=== PATIENT | male | born 1970 | race Caucasian/White ===

== ENCOUNTER 2022-04-29 09:12 | Inpatient (IN) ==
[2022-04-29] MEDS ORDERED: SODIUM CHLORIDE 0.9% 1000ML 1,000 ML IV ONE (09:44)
[2022-04-29] MEDS ORDERED: ONDANSETRON INJ 2 MG/ML 2 ML VIAL IV STA (10:02)
[2022-04-29 10:03] LABS: Basophils # (auto) 0.04 K/uL (0-0.2); Basophils % (auto) 0.4 %; Eosinophils # (auto) 0.24 K/uL (0-0.50); Eosinophils % (auto) 2.6 %; Hematocrit (blood only) 41.5 % (40.1-51.0); Hemoglobin 14.2 g/dl (14.0-18.0); Immature Granulocytes # (auto) 0.02 K/uL (0.00-0.02); Immature Granulocytes % (auto) 0.2 %; Lymphocytes % (auto) 25.7 %; Mean Corpuscular Hemoglobin 30.6 pg (25.0-34.0); Mean Corpuscular Hgb Conc 34.2 g/dL (32.0-36.0); Mean Corpuscular Volume 89.4 fL (80.0-100.0); Mean Platelet Volume 10.6 fL (9.4-12.4); Monocytes # (auto) 1.05 K/uL (0.24-0.82); Monocytes % (auto) 11.3 %; Neutrophils # (auto) 5.58 K/uL (1.4-6.5); Neutrophils % (auto) 59.8 %; Platelet Count 252 K/uL (130-400); RDW Coefficient of Variation 12.2 % (11.5-14.5); RDW Standard Deviation 40.2 fL (36.4-46.3); Red Blood Count 4.64 M/uL (4.63-6.08); White Blood Count 9.33 K/ul (4.8-10.8)
[2022-04-29 10:21] LABS: Albumin Level 3.9 gm/dl (3.4-5.0); BUN Creatinine Ratio 16.4 (10-20); Bilirubin Direct 0.2 mg/dl (0-0.2); Bilirubin,Total 0.9 mg/dl (0.2-1.0); Calcium 8.9 mg/dl (8.5-10.1); Creatinine Clr Calc Pharmacy 99.3 ml/min; Est GFR (African American) 83.5 ml/min; Potassium 3.4 mmol/L (3.5-5.1); Total Protein 7.6 gm/dl (6.0-8.3)
[2022-04-29] MEDS ORDERED: OPTIRAY 350 100ml IV ONE (11:11)
--- NOTE | 2022-04-29 11:33 | CT Scan Report ---
CT abd pelvis IV con only CLINICAL HISTORY: llq pain TECHNIQUE: Helical axial images of the abdomen and pelvis were obtained and displayed. Automated dose lowering techniques and/or adjustment according to patient size were utilized for this exam. This e xam was performed with intravenous contrast. CT DOSE: 1508.17 mGy.cm COMPARISON: None available at the time of this dictation. FINDINGS: Lower chest: Mild atherosclerotic disease is seen in the coronary arteries. Liver: Unremarkable. No focal lesions are seen. Gallbladder and biliary tree: Patient is status post cholecystectomy. No intra- or extrahepatic bilia ry ductal dilation. Pancreas: Unremarkable, no focal lesions. Spleen: Unremarkable. Adrenals: Unremarkable. Kidneys and ureters: Unremarkable. Bladder: Unremarkable. Reproductive organs: Unremarkable. Bowel: Numerous diverticula are seen. There is mild thickening of the sigmoid: With a gas and fluid c ollection adjacent to it. There is also extensive stranding about adjacent loops of small bowel, farheen ral which are dilated measuring up to 35 mm in diameter. Lymph nodes Retroperitoneal: Subcentimeter retroperitoneal and kerri hepatis nodes are noted. Pelvic: Unremarkable. Mesenteric: Subcentimeter lymph nodes are noted. Peritoneum: Prominent fat stranding is seen in the left lower quadrant about the sigmoid colon and mu ltiple loops of bowel. Trace free pelvic fluid is seen. A small gas and fluid collection is noted. No free air is seen. Vessels: Atherosclerotic calcifications are seen. Abdominal wall: A fat-containing umbilical hernia is seen. Bones: Unremarkable. IMPRESSION: There is wall thickening and stranding about the sigmoid colon and loops of small bowel. A gas and fl uid collection is seen which may represent a contained perforation or abscess. Findings are favored t o represent a primary diverticulitis with perforation/abscess and secondary involvement of adjacent l oops of small bowel. ACT 112: Negative or not required by law. Electronically signed by: Duong Walker M.D. 04/29/2022 11:32 AM
[2022-04-29] MEDS ORDERED: PIPERACILLIN/TAZOBACTAM 4.5 GM/120 ML BAG IV ONE (11:40)
--- NOTE | 2022-04-29 11:58 | History & Physical Report ---
Date of Service April 29, 2022 Assessment & Plan (1) Colon perforation: Plan: Patient has perforation of his sigmoid colon seen on CT scan with concern for abscess. Patient does not have significant leukocytosis. Emergency physician contacted general surgery who recommended conservative management with antibiotics. Patient will be admitted to our facility he will be given IV fluids with potassium to replete his hypokalemia will be given Cipro and Flagyl antibiotics and have a general surgical consultation for follow-up. Patient will have blood cultures obtained. 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 He has a known history of diverticulitis found on colonoscopy about 8 years ago. The patient had a week of decreased appetite and yellow diarrhea. The patient was put on antibiotics from his primary care provider approximately 3 days prior to admission he cannot recall the name of these. Patient presents today with dark black bowel movements and abdominal pain in the lower quadrants he is found to be tachycardic on arrival and hypertensive. He does not have a leukocytosis but he is found to have a diverticular abscess with microperforation on CT scan General surgery consultation Dr. Shafer recommended admission for medical management of the abscess and microperforation he was given Zosyn in the ER but will be converted to Cipro Flagyl General surgery be consulted to follow along. This patient is from [place] and plans to return to [place] he is discussing with his family whether they would want me to call the family physician and possibly arrange a hospital hospital transfer. Past Med/Surg History Medical History (Updated 04/29/22 @ 12:27 by Pro Carreon MD) Diverticulitis Mnire's disease Social History (Updated 04/29/22 @ 12:28 by Pro Carreon MD) Smoking Status: Never smoker Hx Alcohol Use: Yes Alcohol type: beer Alcohol Intake Frequency: Monthly or Less Hx Substance Use: No Feels Safe at Home: Yes Review of Systems Review of Systems: Mild distress and moderate fatigue no headache, no visual changes no speech or swallowing issues no chest pain, pressure or palpitations no shortness of breath, cough or wheezes Bilateral lower quadrant abdominal pain, loss of appetite, no nausea or vomiting, melena no dysuria, hematuria or frequency states urine is dark denies having air or gas or stuttering in his urinary stream no focal joint pain or swelling no back pain, CVA tenderness or radicular pain no bruising, bleeding or rashes no focal signs of weakness or numbness or altered sensation no complaints of anxiety or depression.. Physical Exam Physical Exam: The patient appeared well nourished and normally developed. Vital signs as documented. Head exam is normocephalic atraumatic Neck is without JVD, thyromegaly, or carotid bruits. Lungs are clear to auscultation, no focal loss of breath sounds Cardiac exam, Rhythm is regular.. No murmurs, rubs or gallops. Abdominal exam reveals normal bowel sounds, soft non Bilateral lower quadrant tenderness to palpation no rebound no guarding no acute abdomen Extremities are nonedematous and both pedal pulses are present Neurologic exam is alert and oriented, no focal loss of strength or sensation Skin is without bruises or rashes Psychologically is without concerns for anxiety or depression.. Results & Data Results & Data ([facility]) Vital Signs (Past 12 Hours) Vital Signs Temp Pulse Resp BP Pulse Ox O2 Del Method 04/29/22 11:14 109 H 17 04/29/22 10:31 99 H 22 138/115 H 04/29/22 09:19 97.5 F L 93 H 16 149/86 H 96 Room Air Diagnostic Findings Abdomen/Pelvis CT 04/29/22 10:02 CT abd pelvis IV con only CLINICAL HISTORY: llq pain TECHNIQUE: Helical axial images of the abdomen and pelvis were obtained and displayed. Automated dose lowering techniques and/or adjustment according to patient size were utilized for this exam. This exam was performed with intravenous contrast. CT DOSE: 1508.17 mGy.cm COMPARISON: None available at the time of this dictation. FINDINGS: Lower chest: Mild atherosclerotic disease is seen in the coronary arteries. Liver: Unremarkable. No focal lesions are seen. Gallbladder and biliary tree: Patient is status post cholecystectomy. No intra- or extrahepatic biliary ductal dilation. Pancreas: Unremarkable, no focal lesions. Spleen: Unremarkable. Adrenals: Unremarkable. Kidneys and ureters: Unremarkable. Bladder: Unremarkable. Reproductive organs: Unremarkable. Bowel: Numerous diverticula are seen. There is mild thickening of the sigmoid: With a gas and fluid collection adjacent to it. There is also extensive stranding about adjacent loops of small bowel, several which are dilated measuring up to 35 mm in diameter. Lymph nodes Retroperitoneal: Subcentimeter retroperitoneal and kerri hepatis nodes are noted. Pelvic: Unremarkable. Mesenteric: Subcentimeter lymph nodes are noted. Peritoneum: Prominent fat stranding is seen in the left lower quadrant about the sigmoid colon and multiple loops of bowel. Trace free pelvic fluid is seen. A sm all gas and fluid collection is noted. No free air is seen. Vessels: Atherosclerotic calcifications are seen. Abdominal wall: A fat-containing umbilical hernia is seen. Bones: Unremarkable. IMPRESSION: There is wall thickening and stranding about the sigmoid colon and loops of small bowel. A gas and fluid collection is seen which may represent a contained perforation or abscess. Findings are favored to represent a primary diverticulitis with perforation/abscess and secondary involvement of adjacent loops of small bowel. Electronically signed by: Duong Walker M.D. 04/29/2022 11:32 AM PG Care Time/CCT Total # of Minutes Spent Total Time Spent with Patient: Total time spent is greater than 50% in coordination of care (as documented) at patient's floor/unit and/or counseling patient: Coding Level of Care Code 20178 Initial Inpt Care Lvl 2 Diagnoses Colon perforation K63.1
--- NOTE | 2022-04-29 16:24 | Surgery Consultation ---
Date of Consultation April 29, 2022 Assessment & Plan (1) Diverticulitis of intestine with perforation and abscess: Plan 51-year-old male with history of diverticulitis treated with oral antibiotics 8 years ago presented to the emergency room with complaint of dark liquid bowel movements with a remote history of lower abdominal pain that began Monday into Monday which was severe and then slightly improved. He has had associated low- grade fever, nausea, vomiting. CT scan of the abdomen and pelvis shows sigmoid diverticulitis with microperforation and contained abscess. There is reactive changes of some small bowel loops. On exam he has a mildly distended and tender in the left lower quadrant and mid lower abdomen however there is no rigidity, rebound, peritonitis. Plan: Discussed imaging findings with patient consistent with sigmoid diverticulitis with microperforation. There is no evidence of pneumoperitoneum and his exam is without any peritonitis. Discussed conservative management with IV antibiotics likely for [address] scan findings with transition to oral antibiotics for total course of 14 days, n.p.o. for bowel rest, IV fluids, pain management as needed, antiemetics as needed. Discussed with patient that we try to avoid any surgical intervention while there is acute diverticulitis as there is a risk of needing temporary colostomy. He will need to have a colonoscopy in 6 to 8 weeks given complicated diverticulitis and last colonoscopy about 8 years ago. He does follow with a GI specialist back at home in [place]. Advised to keep appointment in May as already scheduled. Continue current medical management Repeat a.m. labs Discussed with Dr. Fields who agrees with above. Supervising Physician Co-Signing Physician Notes Patient seen and examined and agree with the plan. History of Present Illness Reason for Consultation: Sigmoid diverticulitis with microperforation and abscess Requesting Physician: Pro Carreon MD Attending Physician: Pro Carreon MD History of Present Illness Khris is a very pleasant 51-year-old male who lives in [place] with a history of diverticulitis about 8 years ago treated with oral antibiotics presented to the emergency room with a remote history of severe abdominal pain that started on Monday into Monday and then slightly improved and then noticed some changes in his stools with yellow diarrhea and some black flecks and then darker colored liquid stool. He states he took Tylenol this morning and pain is currently about a 4 out of 10 with movement but no pain at rest. He had a low- grade fever on Monday however has not taken his temperature since but felt slightly feverish yesterday. His last colonoscopy was 8 years ago after his first episode of diverticulitis. He states he had an episode of diverticulitis about 3 weeks ago and changed his diet and was not put on any antibiotics. He was just recently put on antibiotics Cipro and Flagyl by his primary care doctor about 3 days ago. ER work-up included labs which show no leukocytosis. He was tachycardic with heart rate in the 90s. CT scan of the abdomen pelvis with IV contrast showing sigmoid diverticulitis with surrounding stranding consistent with a contained microperforation and possible abscess formation. There is reactive small bowel inflammatory changes adjacent to the sigmoid colon. Allergies Allergy/AdvReac Type Severity Reaction Status Date / Time No Known Allergies Allergy Unverified 04/29/22 14:50 Home Medications Medication Instructions Recorded Confirmed Type ciprofloxacin HCl 500 mg tablet 500 mg PO BID 04/29/22 04/29/22 History fluticasone propionate 50 2 spray intranasal DAILY 04/29/22 04/29/22 History mcg/actuation nasal spray,suspension (Flonase Allergy Relief) glucosamine-chondroitin 250 mg-200 2 tab PO PC 04/29/22 04/29/22 History mg tablet (Osteo Bi-Flex) loratadine 10 mg tablet (Claritin) 10 mg PO DAILY 04/29/22 04/29/22 History metronidazole 500 mg tablet 500 mg PO TID 04/29/22 04/29/22 History Patient History Medical History Diverticulitis Mnire's disease No pertinent family history Surgical History H/O bilateral inguinal hernia repair Hx of cholecystectomy Social History Smoking Status: Former smoker Do You Dip or Chew Tobacco: Yes (Occasionally); Hx Alcohol Use: Yes Alcohol type: beer Alcohol Intake Frequency: Monthly or Less Hx Substance Use: No Preferred Language: Kyrgyz Communication Ability: Effective Pbx Operator Required: No Beliefs That Will Affect Care: None Current Living Situation: Family Other Information That Helps Us Care for You: No Feels Safe at Home: Yes Safety Concerns: Feels Safe At This Time Assistive Devices: Glasses and Hearing Aid - Bilateral Review of Systems Review of Systems: All systems reviewed & are unremarkable except as noted in HPI & below Physical Exam Constitutional: WD/WN, vitals as above cooperative, comfortable and + overweight; no acute distress and not ill appearing Neck: normal visual inspection and trachea midline Respiratory: normal respiratory effort, lungs clear to auscultation Cardiovascular: RRR, no murmur, no edema Gastrointestinal (Abdomen): Inspection/Auscultation: abdomen normal to in spection, + abdomen distended (mild), normal bowel sounds and + visible herniation (Umbilical hernia) Percussion/Palpation: + abdomen tender (Left lower quadrant and lower mid abdomen) and abdomen soft; no guarding, abdomen not rigid and abdomen not firm Skin: no rashes, warm and dry Psychiatric: A+Ox3, euthymic affect Results & Data ([facility]) Vital Signs (Past 12 Hours) Vital Signs Temp Pulse Resp BP Pulse Ox O2 Del Method 04/29/22 15:00 94 H 21 137/91 97 04/29/22 14:27 95 H 24 134/94 04/29/22 12:43 98 Room Air 04/29/22 12:30 91 H 22 141/90 H 98 04/29/22 12:00 93 H 16 154/114 H 04/29/22 11:14 109 H 17 04/29/22 10:31 99 H 22 138/115 H 04/29/22 09:19 36.4 C L 93 H 16 149/86 H 96 Room Air Laboratory Results 04/29/22 04/29/22 04/29/22 Range/Units 12:39 09:50 09:50 WBC 9.33 (4.8-10.8) K/ul RBC 4.64 (4.63-6.08) M/uL Hgb 14.2 (14.0-18.0) g/dl Hct 41.5 (40.1-51.0) % MCV 89.4 (80.0-100.0) fL MCH 30.6 (25.0-34.0) pg MCHC 34.2 (32.0-36.0) g/dL RDW Std Deviation 40.2 (36.4-46.3) fL RDW Coeff of Britt 12.2 (11.5-14.5) % Plt Count 252 (130-400) K/uL MPV 10.6 (9.4-12.4) fL Immature Gran % (Auto) 0.2 % Neut % (Auto) 59.8 % Lymph % (Auto) 25.7 % [place] % (Auto) 11.3 % Eos % (Auto) 2.6 % Baso % (Auto) 0.4 % Neut # (Auto) 5.58 (1.4-6.5) K/uL Lymph # (Auto) 2.40 (1.2-3.4) K/uL [place] # (Auto) 1.05 H (0.24-0.82) K/uL Eos # (Auto) 0.24 (0-0.50) K/uL Baso # (Auto) 0.04 (0-0.2) K/uL Immature Gran # (Auto) 0.02 (0.00-0.02) K/uL Sodium 135 L (136-145) mmol/L Potassium 3.4 L (3.5-5.1) mmol/L Chloride 99 (98-107) mmol/L Carbon Dioxide 25 (21-32) mmol/L Anion Gap 11 (3-11) BUN 19 (6-23) mg/dl Creatinine 1.16 (0.6-1.4) mg/dl Est Cr Clr Drug Dosing 99.3 ml/min Est GFR ( Amer) 83.5 ml/min Est GFR (Non-Af Amer) 72.0 ml/min BUN/Creatinine Ratio 16.4 (10-20) Glucose 107 H (70-99(Fasting)) mg/dl Calcium 8.9 (8.5-10.1) mg/dl Total Bilirubin 0.9 (0.2-1.0) mg/dl Direct Bilirubin 0.2 (0-0.2) mg/dl AST 24 (13-39) U/L ALT 24 (7-52) U/L Alkaline Phosphatase 61 (34-104) U/L Total Protein 7.6 (6.0-8.3) gm/dl Albumin 3.9 (3.4-5.0) gm/dl Lipase 19 (11-82) U/L SARS-CoV-2, RNA, NAAT NEGATIVE (NEGATIVE) Diagnostic Findings CT abd pelvis IV con only CLINICAL HISTORY: llq pain TECHNIQUE: Helical axial images of the abdomen and pelvis were obtained and displayed. Automated dose lowering techniques and/or adjustment according to patient size were utilized for this exam. This exam was performed with intravenous contrast. CT DOSE: 1508.17 mGy.cm COMPARISON: None available at the time of this dictation. FINDINGS: Lower chest: Mild atherosclerotic disease is seen in the coronary arteries. Liver: Unremarkable. No focal lesions are seen. Gallbladder and biliary tree: Patient is status post cholecystectomy. No intra- or extrahepatic biliary ductal dilation. Pancreas: Unremarkable, no focal lesions. Spleen: Unremarkable. Adrenals: Unremarkable. Kidneys and ureters: Unremarkable. Bladder: Unremarkable. Reproductive organs: Unremarkable. Bowel: Numerous diverticula are seen. There is mild thickening of the sigmoid: With a gas and fluid collection adjacent to it. There is also extensive stranding about adjacent loops of small bowel, several which are dilated measuring up to 35 mm in diameter. Lymph nodes Retroperitoneal: Subcentimeter retroperitoneal and kerri hepatis nodes are noted. Pelvic: Unremarkable. Mesenteric: Subcentimeter lymph nodes are noted. Peritoneum: Prominent fat stranding is seen in the left lower quadrant about the sigmoid colon and multiple loops of bowel. Trace free pelvic fluid is seen. A small gas and fluid collection is noted. No free air is seen. Vessels: Atherosclerotic calcifications are seen. Abdominal wall: A fat-containing umbilical hernia is seen. Bones: Unremarkable. IMPRESSION: There is wall thickening and stranding about the sigmoid colon and loops of small bowel. A gas and fluid collection is seen which may represent a contained perforation or abscess. Findings are favored to represent a primary diverticulitis with perforation/abscess and secondary involvement of adjacent loops of small bowel.
[2022-04-29] MEDS ORDERED: MoRPHine SULFATE 2 MG/ML CARP IV PRN (16:52)
[2022-04-29] MEDS ORDERED: MoRPHine SULFATE 4 MG/ML 1 ML CARP\\VIAL IV PRN (16:52)
[2022-04-29] MEDS ORDERED: ONDANSETRON INJ 2 MG/ML 2 ML VIAL IV PRN (16:52)
[2022-04-29] MEDS ORDERED: ACETAMINOPHEN 325 MG TAB PO PRN (16:52)
[2022-04-29] MEDS ORDERED: SODIUM CHLORIDE 0.9% 1000ML 1,000 ML IV SCH (17:00)
[2022-04-29] MEDS: POTASSIUM CHLORIDE 20 MEQ in SODIUM CHLORIDE 0.9% 1000ML 1,000 ML IV SCH (17:14)
[2022-04-29] MEDS: metroNIDAZOLE 500 MG/100 ML BAG IV SCH (17:14)
--- NOTE | 2022-04-29 17:56 | Emergency Department Note ---
History of Present Illness General Chief Complaint: GI Bleed Stated Complaint: DIVERTICULITIS, BLACK STOOL Time Seen by Provider: 04/29/22 09:43 History of Present Illness Provider Complaint: abdominal pain Onset (ago): 3 day(s) Pain Consistency: intermittent Location: diffuse Severity: mild Maximum Pain Intensity: 3 Current Pain Intensity: 3 Quality: + aching Relieved By: + nothing Exacerbated By: + nothing Context: + recent antibiotic use (Patient recently placed on Cipro and Flagyl on Monday for diverticulitis by his primary care doctor in [place].) Associated Symptoms: + nausea, + chills and + melena; no vomiting, no con stipation, no dysuria, no hematemesis, no hematuria, no anorexia, no syncope and no weakness Patient is visiting from [place] for the holidays but is planning on moving to the area shortly as he recently purchased a house in the area. Patient states he has been having chills but no fevers as he is visiting and has been unable to measure his temperature due to lack of thermometer. Home Medications Medication Instructions Recorded Confirmed Type ciprofloxacin HCl 500 mg tablet 500 mg PO BID 04/29/22 04/29/22 History fluticasone propionate 50 2 spray intranasal DAILY 04/29/22 04/29/22 History mcg/actuation nasal spray,suspension (Flonase Allergy Relief) glucosamine-chondroitin 250 mg-200 2 tab PO PC 04/29/22 04/29/22 History mg tablet (Osteo Bi-Flex) loratadine 10 mg tablet (Claritin) 10 mg PO DAILY 04/29/22 04/29/22 History metronidazole 500 mg tablet 500 mg PO TID 04/29/22 04/29/22 History Allergies Allergy/AdvReac Type Severity Reaction Status Date / Time No Known Allergies Allergy Unverified 04/29/22 14:50 Past Med/Surg History Medical History Diverticulitis Mnire's disease No pertinent family history Surgical History H/O bilateral inguinal hernia repair Hx of cholecystectomy Social History Smoking Status: Former smoker Do You Dip or Chew Tobacco: Yes (Occasionally); Hx Alcohol Use: Yes Alcohol type: beer Alcohol Intake Frequency: Monthly or Less Hx Substance Use: No Preferred Language: Tristanian Communication Ability: Effective Paper Handler Required: No Beliefs That Will Affect Care: None Current Living Situation: Family Other Information That Helps Us Care for You: No Feels Safe at Home: Yes Safety Concerns: Feels Safe At This Time Assistive Devices: Glasses and Hearing Aid - Bilateral Review of Systems A total of 10 systems reviewed and were otherwise negative Physical Exam Vital Signs: Vital Signs - 24 hr 04/29/22 09:19 04/29/22 10:31 04/29/22 11:14 Temperature 36.4 C L Temperature Source Temporal Artery Sc an Pulse Rate 93 H 99 H 109 H Respiratory Rate 16 22 17 Respiratory Effort / Characteristics Non-Labored Respiratory Depth Normal Blood Pressure 149/86 H 138/115 H Blood Pressure Teagan n 107 122 Blood Pressure Pos ition Sitting Pulse Oximetry 96 Oxygen Delivery Me thod Room Air Sepsis Recent Feve r Within 48 Hours No Sepsis New/Unexpla ined Change in Men jennifer Status No Sepsis Action Take n by Nursing No Action Required 04/29/22 12:00 Temperature Temperature Source Pulse Rate 93 H Respiratory Rate 16 Respiratory Effort / Characteristics Respiratory Depth Blood Pressure 154/114 H Blood Pressure Teagan n 127 Blood Pressure Pos ition Pulse Oximetry Oxygen Delivery Me thod Sepsis Recent Feve r Within 48 Hours Sepsis New/Unexpla ined Change in Men jennifer Status Sepsis Action Take n by Nursing Physical Exam: Physical Exam GENERAL: He is oriented to person, place, and time. He appears well-developed and well-nourished. He does not appear distressed. HENT: Exam performed. - Head: Normocephalic and atraumatic. - Right Ear: External ear normal. No mastoid tenderness. - Left Ear: External ear normal. No mastoid tenderness. - Mouth/Throat: The oropharynx is clear and moist. No trismus in the jaw. No dental abscesses or uvula swelling. No oropharyngeal exudate or tonsillar abscesses. EYES: Conjunctivae and EOM are normal. Pupils are equal, round, and reactive to light. Right eye exhibits no discharge. Left eye exhibits no discharge. No scleral icterus. NECK: Normal range of motion. Neck supple. No JVD present. No spinous process tenderness present. No carotid bruit present. No rigidity. No tracheal deviation and normal range of motion present. No Brudzinski's sign and no Kernig's sign noted. CV: Normal rate, regular rhythm, normal heart sounds and intact distal pulses. There is no peripheral edema. Palpable radial pulses bue. PULM/CHEST: Effort normal and breath sounds normal. No respiratory distress. No stridor. He has no wheezes. He has no rales. - Chest Wall: He exhibits no tenderness. ABD: The abdomen is soft. Bowel sounds are normal. He has no distension. No mass is present. There is tenderness to palpation of the left lower quadrant. There is no rebound, no guarding, no Hernandez's sign and no tenderness at McBurney's point. Rovsig negative. Rectal: Hemoccult negative. MUSC/SKEL: Normal range of motion. There is no peripheral edema, tenderness or deformity. LYMPH: No cervical adenopathy. NEURO: He is alert and oriented to person, place, and time. He has normal strength. No cranial nerve deficit or sensory deficit. Coordination and gait normal. GCS eye subscore is 4. GCS verbal subscore is 5. GCS motor subscore is 6. Cerebellar tests wnl. SKIN: Skin is warm and dry. He is not diaphoretic. PSYCH: He has a normal mood and affect. Behavior is normal. Judgment and thought content normal. Course Course 09: The patient was evaluated in room B6. A complete history and physical exam was performed Cardiac monitoring: An order was placed for continuous cardiac monitoring. The monitor shows a rate of 90 with sinus rhythm 1146: Vital signs stable. Labs are within normal limits. CT imaging shows diverticulitis with a gas and fluid collection which may represent a contained perforation or abscess measuring 35 mm in diameter. Discussed the case with general surgery on-call Dr. Fields who states there is no surgical intervention needed at this time and patient should be admitted to medicine with broad-spectrum antibiotics. Zosyn ordered for the patient. Will discuss case with Dr. Lal will evaluate the patient for admission. Administered Medications Metronidazole (Flagyl) 500 mg in 100 mls @ 100 mls/hr IV Q8H [facility] Stop: 05/09/22 16:59 Last Admin: 04/29/22 17:14 Dose: 100 mls/hr Documented By: EDGAR Potassium Chloride 20 meq/ (Sodium Chloride) 1,010 mls @ 125 mls/hr IV .Q8H5M [facility] Stop: 05/29/22 17:29 Last Admin: 04/29/22 17:14 Dose: 125 mls/hr Documented By: EDGAR Discontinued Medications Sodium Chloride (Nss 1000ml) 1,000 mls @ 999 mls/hr IV .Q1H1M ONE Stop: 04/29/22 10:44 Last Infusion: 04/29/22 14:06 Dose: 0 mls/hr Documented By: Admin: 04/29/22 09:55 Dose: 999 mls/hr Documented By: RADHA Piperacillin Sod/Tazobactam Sod (Zosyn) 4.5 gm in 120 mls @ 240 mls/hr IV NOW ONE Stop: 04/29/22 12:09 Last Infusion: 04/29/22 14:06 Dose: 0 mls/hr Documented By: Admin: 04/29/22 12:33 Dose: 240 mls/hr Documented By: RADHA Ioversol (Optiray 350 100ml) 87 ml IV ONCE ONE Stop: 04/29/22 11:12 Last Admin: 04/29/22 11:11 Dose: 87 ml Documented By: ENID Ondansetron HCl (Ondansetron Inj 2 Mg/Ml 2 Ml Vial) 4 mg IV NOW STA Stop: 04/29/22 10:03 Last Admin: 04/29/22 10:52 Dose: 4 mg Documented By: RADHA Medical Decision Making Laboratory Data Result diagrams: 04/29/22 09:50 04/29/22 09:50 Lab Results 04/29/22 04/29/22 Range/Units 09:50 09:50 WBC 9.33 (4.8-10.8) K/ul RBC 4.64 (4.63-6.08) M/uL Hgb 14.2 (14.0-18.0) g/dl Hct 41.5 (40.1-51.0) % MCV 89.4 (80.0-100.0) fL MCH 30.6 (25.0-34.0) pg MCHC 34.2 (32.0-36.0) g/dL RDW Std Deviation 40.2 (36.4-46.3) fL RDW Coeff of Britt 12.2 (11.5-14.5) % Plt Count 252 (130-400) K/uL MPV 10.6 (9.4-12.4) fL Immature Gran % (Auto) 0.2 % Neut % (Auto) 59.8 % Lymph % (Auto) 25.7 % Sandoval % (Auto) 11.3 % Eos % (Auto) 2.6 % Baso % (Auto) 0.4 % Neut # (Auto) 5.58 (1.4-6.5) K/uL Lymph # (Auto) 2.40 (1.2-3.4) K/uL Sandoval # (Auto) 1.05 H (0.24-0.82) K/uL Eos # (Auto) 0.24 (0-0.50) K/uL Baso # (Auto) 0.04 (0-0.2) K/uL Immature Gran # (Auto) 0.02 (0.00-0.02) K/uL Sodium 135 L (136-145) mmol/L Potassium 3.4 L (3.5-5.1) mmol/L Chloride 99 (98-107) mmol/L Carbon Dioxide 25 (21-32) mmol/L Anion Gap 11 (3-11) BUN 19 (6-23) mg/dl Creatinine 1.16 (0.6-1.4) mg/dl Est Cr Clr Drug Dosing 99.3 ml/min Est GFR ( Amer) 83.5 ml/min Est GFR (Non-Af Amer) 72.0 ml/min BUN/Creatinine Ratio 16.4 (10-20) Glucose 107 H (70-99(Fasting)) mg/dl Calcium 8.9 (8.5-10.1) mg/dl Total Bilirubin 0.9 (0.2-1.0) mg/dl Direct Bilirubin 0.2 (0-0.2) mg/dl AST 24 (13-39) U/L ALT 24 (7-52) U/L Alkaline Phosphatase 61 (34-104) U/L Total Protein 7.6 (6.0-8.3) gm/dl Albumin 3.9 (3.4-5.0) gm/dl Lipase 19 (11-82) U/L Imaging Data Radiologist's Impression: Abdomen/Pelvis CT 04/29/22 10:02 CT abd pelvis IV con only CLINICAL HISTORY: llq pain TECHNIQUE: Helical axial images of the abdomen and pelvis were obtained and displayed. Automated dose lowering techniques and/or adjustment according to patient size were utilized for this exam. This exam was performed with intravenous contrast. CT DOSE: 1508.17 mGy.cm COMPARISON: None available at the time of this dictation. FINDINGS: Lower chest: Mild atherosclerotic disease is seen in the coronary arteries. Liver: Unremarkable. No focal lesions are seen. Gallbladder and biliary tree: Patient is status post cholecystectomy. No intra- or extrahepatic biliary ductal dilation. Pancreas: Unremarkable, no focal lesions. Spleen: Unremarkable. Adrenals: Unremarkable. Kidneys and ureters: Unremarkable. Bladder: Unremarkable. Reproductive organs: Unremarkable. Bowel: Numerous diverticula are seen. There is mild thickening of the sigmoid: With a gas and fluid collection adjacent to it. There is also extensive stranding about adjacent loops of small bowel, several which are dilated measuring up to 35 mm in diameter. Lymph nodes Retroperitoneal: Subcentimeter retroperitoneal and kerri hepatis nodes are noted. Pelvic: Unremarkable. Mesenteric: Subcentimeter lymph nodes are noted. Peritoneum: Prominent fat stranding is seen in the left lower quadrant about the sigmoid colon and multiple loops of bowel. Trace free pelvic fluid is seen. A small gas and fluid collection is noted. No free air is seen. Vessels: Atherosclerotic calcifications are seen. Abdominal wall: A fat-containing umbilical hernia is seen. Bones: Unremarkable. IMPRESSION: There is wall thickening and stranding about the sigmoid colon and loops of small bowel. A gas and fluid collection is seen which may represent a contained perforation or abscess. Findings are favored to represent a primary diverticulitis with perforation/abscess and secondary involvement of adjacent loops of small bowel. ACT 112: Negative or not required by law. Electronically signed by: Duong Walker M.D. 04/29/2022 11:32 AM MDM Narrative Vital signs stable. Labs are within normal limits. CT imaging shows diverticulitis with a gas and fluid collection which may represent a contained perforation or abscess measuring 35 mm in diameter. Discussed the case with general surgery on-call Dr. Fields who states there is no surgical intervention needed at this time and patient should be admitted to medicine with broad-spectrum antibiotics. Zosyn ordered for the patient. Will discuss case w ith Dr. Lal will evaluate the patient for admission. Impression & Plan Diverticulitis of intestine with perforation and abscess Discharge Plan Visit Data Chief Complaint: GI Bleed Stated Complaint: DIVERTICULITIS, BLACK STOOL ED Provider: Knau Chawla Discharge Problem: Diverticulitis of intestine with perforation and abscess Patient Disposition: Admitted As Inpatient Discharge Instructions Interventions: ED Discharge Assessment Last Done: 04/29/22 15:18
[2022-04-29] MEDS: CIPROFLOXACIN / D5W 400 MG/200 ML BAG IV SCH (18:36)
[2022-04-29] MEDS: PANTOprazole 40 MG in SYRINGE 0 ML IV SCH (20:46)
[2022-04-30] MEDS: metroNIDAZOLE 500 MG/100 ML BAG IV SCH ×2 (00:40→10:29)
[2022-04-30] MEDS: POTASSIUM CHLORIDE 20 MEQ in SODIUM CHLORIDE 0.9% 1000ML 1,000 ML IV SCH ×3 (01:36→17:42)
[2022-04-30] MEDS: CIPROFLOXACIN / D5W 400 MG/200 ML BAG IV SCH (05:28)
[2022-04-30 06:41] LABS: Hematocrit (blood only) 38.3 % (40.1-51.0); Hemoglobin 12.9 g/dl (14.0-18.0); Mean Corpuscular Hemoglobin 30.8 pg (25.0-34.0); Mean Corpuscular Hgb Conc 33.7 g/dL (32.0-36.0); Mean Corpuscular Volume 91.4 fL (80.0-100.0); Mean Platelet Volume 10.5 fL (9.4-12.4); Platelet Count 219 K/uL (130-400); RDW Coefficient of Variation 12.5 % (11.5-14.5); RDW Standard Deviation 41.1 fL (36.4-46.3); Red Blood Count 4.19 M/uL (4.63-6.08); White Blood Count 7.94 K/ul (4.8-10.8)
[2022-04-30 07:16] LABS: BUN Creatinine Ratio 13.5 (10-20); Calcium 8.2 mg/dl (8.5-10.1); Creatinine Clr Calc Pharmacy 110.7 ml/min; Est GFR (African American) 95.2 ml/min; Est GFR (Non-African American) 82.2 ml/min; Potassium 3.8 mmol/L (3.5-5.1)
[2022-04-30] MEDS ORDERED: PIPERACILLIN/TAZOBACTAM 4.5 GM in DEXTROSE 5% 100 ML IV ONE (09:45)
[2022-04-30] MEDS: PANTOprazole 40 MG in SYRINGE 0 ML IV SCH ×2 (09:48→21:10)
--- NOTE | 2022-04-30 11:42 | Surgery Progress Note ---
Date of Service April 30, 2022 Assessment & Plan (1) Diverticulitis of intestine with perforation and abscess: Plan: good progress begin clears continue IV abx Present on Admission?: Yes Admission and Anticipated Discharge Date Admission Date: April 29, 2022 Subjective pain better Review of Systems Constitutional: no fever, no chills and no anorexia Respiratory: no cough and no dyspnea Cardiovascular: no chest pain and no radiating jaw, neck or arm pain Gastrointestinal: + abdominal pain; no nausea, no vomiting and no change in bowel habits Genitourinary: no dysuria Integumentary: no lesions Neurologic: no localized weakness and no generalized weakness Psychiatric: no behavioral changes Endocrine: no fatigue Hematologic / Lymphatic: no easy bleeding and no easy bruising Physical Exam Constitutional: WD/WN, vitals as above Eyes: PERRL, conjunctivae normal, anicteric sclerae ENMT: external ear and nose normal, oropharynx normal Neck: trachea midline Respiratory: normal respiratory effort, lungs clear to auscultation Cardiovascular: RRR, no murmur, no edema Gastrointestinal (Abdomen): Inspection/Auscultation: abdomen normal to inspection and normal bowel sounds; abdomen not distended Percussion/Palpation: + abdomen tender and abdomen soft; no guarding and abdomen not rigid Musculoskeletal: Head/Neck/Chest: normocephalic and head atraumatic Skin: no rashes, warm and dry Results & Data ([facility]) Vital Signs (Past 12 Hours) Vital Signs Temp Pulse Resp BP Pulse Ox O2 Del Method 04/30/22 07:21 36.6 C 83 16 125/81 98 Room Air
[2022-04-30] MEDS ORDERED: PIPERACILLIN/TAZOBACTAM 3.375 GM in DEXTROSE 5% 100 ML IV SCH (14:00)
[2022-04-30] MEDS: PIPERACILLIN/TAZOBACTAM 4.5 GM in DEXTROSE 5% 100 ML IV SCH ×2 (15:05→23:28)
--- NOTE | 2022-04-30 20:56 | Hospitalist Progress Note ---
Date of Service April 30, 2022 Assessment & Plan (1) Diverticulitis of intestine with perforation and abscess: Plan: Complicated sigmoid diverticulitis with microperforation & abscess. Clinically improved. No fevers, pain better, etc. Given the complicated nature of this diverticulitis episode change cipro/flagyl to IV zosyn. Cont IV fluids. Appreciate gen surg consult & recs -- defer diet management to gen surg. Repeat labs am. Will need outpatient colonoscopy in 8 weeks post-discharge. Low threshold for repeat CT a/p if any clinical worsening to ensure abscess is not worsening. Plan DVT proph - low risk, defer on chemical means at this time Admission and Anticipated Discharge Date Admission Date: April 29, 2022 Subjective patient feeling better today LLQ abd pain is improved today continues with liquid stools no nausea no emesis started on clears today by gen surg - tolerating this thus far Review of Systems Review of Systems: gen - no fever cv - no chest pain pulm - no dyspnea GI - no blood per rectum Physical Exam Physical Exam: gen - NAD, looks good mouth - mmm neck - no JVD heart - RRR, s1 s2, no murmur lungs - CTA b/l abd - soft NT ND BS+; no HSM; no peritoneal signs ext - no edema, pulses 2+ b/l Results & Data Results & Data ([facility]) Vital Signs (Past 12 Hours) Vital Signs Temp Pulse Resp BP BP Pulse Ox O2 Del Method 04/30/22 16:37 145/89 H 99 Room Air 04/30/22 15:41 36.9 C 82 16 143/84 H 99 Room Air Laboratory Results Laboratory Results - last 24 hr 04/30/22 04/30/22 04/30/22 06:06 06:06 06:06 WBC 7.94 RBC 4.19 L Hgb 12.9 L Hct 38.3 L MCV 91.4 MCH 30.8 MCHC 33.7 RDW Std Deviation 41.1 RDW Coeff of Britt 12.5 Plt Count 219 MPV 10.5 Sodium 137 Potassium 3.8 Chloride 104 Carbon Dioxide 26 Anion Gap 7 BUN 14 Creatinine 1.04 Est Cr Clr Drug Dosing 110.7 Est GFR ( Amer) 95.2 Est GFR (Non-Af Amer) 82.2 BUN/Creatinine Ratio 13.5 Glucose 107 H Calcium 8.2 L Magnesium 2.1 Diagnostic Findings blood cx's negative to date PG Care Time/CCT Total # of Minutes Spent Total Time Spent with Patient: Total time spent is greater than 50% in coordination of care (as documented) at patient's floor/unit and/or counseling patient: Coding Level of Care Code 12337 Subseq Hosp Care Lvl 1 Diagnoses Diverticulitis of intestine with perforation and abscess K57.80
[2022-05-01] MEDS: POTASSIUM CHLORIDE 20 MEQ in SODIUM CHLORIDE 0.9% 1000ML 1,000 ML IV SCH ×3 (01:47→17:23)
[2022-05-01 06:26] LABS: Hematocrit (blood only) 38.6 % (40.1-51.0); Hemoglobin 12.9 g/dl (14.0-18.0); Mean Corpuscular Hemoglobin 30.6 pg (25.0-34.0); Mean Corpuscular Hgb Conc 33.4 g/dL (32.0-36.0); Mean Corpuscular Volume 91.5 fL (80.0-100.0); Mean Platelet Volume 10.5 fL (9.4-12.4); Platelet Count 234 K/uL (130-400); RDW Coefficient of Variation 12.1 % (11.5-14.5); RDW Standard Deviation 40.5 fL (36.4-46.3); Red Blood Count 4.22 M/uL (4.63-6.08); White Blood Count 6.87 K/ul (4.8-10.8)
[2022-05-01] MEDS: PIPERACILLIN/TAZOBACTAM 4.5 GM in DEXTROSE 5% 100 ML IV SCH ×3 (06:33→23:34)
[2022-05-01 06:45] LABS: BUN Creatinine Ratio 8.1 (10-20); Calcium 8.2 mg/dl (8.5-10.1); Creatinine Clr Calc Pharmacy 116.3 ml/min; Est GFR (African American) 101.1 ml/min; Est GFR (Non-African American) 87.2 ml/min; Potassium 3.7 mmol/L (3.5-5.1)
[2022-05-01] MEDS: PANTOprazole 40 MG in SYRINGE 0 ML IV SCH ×2 (09:40→20:31)
--- NOTE | 2022-05-01 12:47 | Surgery Progress Note ---
Date of Service May 01, 2022 Assessment & Plan (1) Diverticulitis of intestine with perforation and abscess: Plan: continue IV abx advance diet good progress possibly home soon on po abx Present on Admission?: Yes Admission and Anticipated Discharge Date Admission Date: April 29, 2022 Subjective feels better pain improving tolerating diet Review of Systems Constitutional: no fever, no chills and no sweats Respiratory: no cough and no dyspnea Cardiovascular: no chest pain Gastrointestinal: + abdominal pain; no nausea, no vomiting and no change in bowel habits Genitourinary: no dysuria Musculoskeletal: no back pain Integumentary: no lesions Neurologic: no localized weakness and no generalized weakness Psychiatric: no behavioral changes Hematologic / Lymphatic: no easy bleeding and no easy bruising Physical Exam Constitutional: WD/WN, vitals as above Eyes: PERRL, conjunctivae normal, anicteric sclerae Neck: trachea midline Respiratory: normal respiratory effort, lungs clear to auscultation Cardiovascular: RRR, no murmur, no edema Gastrointestinal (Abdomen): Inspection/Auscultation: abdomen normal to inspection and normal bowel sounds; abdomen not distended Percussion/Palpation: + abdomen tender and abdomen soft; no guarding and abdomen not rigid Musculoskeletal: Head/Neck/Chest: normocephalic and head atraumatic Skin: no rashes, warm and dry Results & Data ([facility]) Vital Signs (Past 12 Hours) Vital Signs Temp Pulse Resp BP Pulse Ox O2 Del Method 05/01/22 07:08 36.7 C 74 16 125/78 97 Room Air
--- NOTE | 2022-05-01 18:55 | XRay Report ---
XR chest 2V PA/lateral HISTORY: 51 years-old Male cough x 2 weeks subacute cough COMPARISON: CT abdomen and pelvis 04/29/2022 TECHNIQUE: PA and lateral views of the chest FINDINGS: Cardiomediastinal and hilar silhouettes are within normal limits. No pneumothorax, pleural effusion, airspace consolidation or overt pulmonary edema. Bones appear grossly intact. IMPRESSION: No acute process. ACT 112: Negative or not required by law. The above report was generated using voice recognition software. It may contain grammatical, syntax o r spelling errors. Electronically signed by: Deion Freed M.D. 05/01/2022 6:54 PM
[2022-05-01] MEDS: guaiFENesin 600 MG TABCR PO SCH (20:31)
[2022-05-01] MEDS: BENZONATATE 100 MG CAPSULE PO SCH (20:31)
--- NOTE | 2022-05-01 20:43 | Hospitalist Progress Note ---
Date of Service May 01, 2022 Assessment & Plan (1) Diverticulitis of intestine with perforation and abscess: Plan: Complicated sigmoid diverticulitis with microperforation & abscess. Clinically improved. No fevers, pain better, etc. Tolerating clears. Defer additional diet advancement to gen surg. Cont Iv zosyn. Cut fluid rate to 75cc/hr. Appreciate gen surg consult & recs. Repeat labs am. Will need outpatient colonoscopy in 8 weeks post-discharge. Low threshold for repeat CT a/p if any clinical worsening to ensure abscess is not worsening. (2) URI (upper respiratory infection): Plan: add mucinex + tessalon for cough doubt lower resp tract infection but will obtain cxr to r/o such Plan DVT proph - low risk, defer on chemical means at this time Admission and Anticipated Discharge Date Admission Date: April 29, 2022 Subjective LLQ pain nearly resolved tolerating clears feels good appetite slowly improving still having liquid stools has had dry cough x 2 weeks feels like it is coming from throat no fever Review of Systems Review of Systems: pulm - no dyspnea GI - no N/V CV - no cp Physical Exam Physical Exam: gen - NAD, looks great mouth - mmm neck - no JVD heart - RRR, s1 s2, no murmur lungs - CTA b/l abd - soft NT ND BS+; no HSM; no peritoneal signs ext - no edema, pulses 2+ b/l Results & Data Results & Data ([facility]) Vital Signs (Past 12 Hours) Vital Signs Temp Pulse Resp BP Pulse Ox O2 Del Method 05/01/22 15:39 37 C 75 16 129/88 98 Room Air Laboratory Results Laboratory Results - last 24 hr 05/01/22 05/01/22 05:32 05:32 WBC 6.87 RBC 4.22 L Hgb 12.9 L Hct 38.6 L MCV 91.5 MCH 30.6 MCHC 33.4 RDW Std Deviation 40.5 RDW Coeff of Britt 12.1 Plt Count 234 MPV 10.5 Sodium 136 Potassium 3.7 Chloride 107 Carbon Dioxide 23 Anion Gap 6 BUN 8 Creatinine 0.99 Est Cr Clr Drug Dosing 116.3 Est GFR ( Amer) 101.1 Est GFR (Non-Af Amer) 87.2 BUN/Creatinine Ratio 8.1 L Glucose 103 H Calcium 8.2 L Diagnostic Findings blood cx's neg PG Care Time/CCT Total # of Minutes Spent Total Time Spent with Patient: Total time spent is greater than 50% in coordination of care (as documented) at patient's floor/unit and/or counseling patient: Coding Level of Care Code 87576 Subseq Hosp Care Lvl 2 Diagnoses Diverticulitis of intestine with perforation and abscess K57.80 URI (upper respiratory infection) J06.9
[2022-05-02] MEDS: POTASSIUM CHLORIDE 20 MEQ in SODIUM CHLORIDE 0.9% 1000ML 1,000 ML IV SCH (04:37)
[2022-05-02] MEDS: PIPERACILLIN/TAZOBACTAM 4.5 GM in DEXTROSE 5% 100 ML IV SCH (06:01)
[2022-05-02 06:39] LABS: Eosinophils % (auto) 3.6 %; Hemoglobin 13.1 g/dl (14.0-18.0); Lymphocytes % (auto) 26.4 %; Mean Corpuscular Hemoglobin 30.8 pg (25.0-34.0); Mean Corpuscular Hgb Conc 34.5 g/dL (32.0-36.0); Mean Corpuscular Volume 89.2 fL (80.0-100.0); Mean Platelet Volume 10.4 fL (9.4-12.4); Monocytes % (auto) 10.4 %; Neutrophils % (auto) 58.7 %; Platelet Count 248 K/uL (130-400); RDW Coefficient of Variation 12.1 % (11.5-14.5); RDW Standard Deviation 39.1 fL (36.4-46.3); Red Blood Count 4.26 M/uL (4.63-6.08); White Blood Count 7.47 K/ul (4.8-10.8)
[2022-05-02 06:40] LABS: Basophils # (auto) 0.04 K/uL (0-0.2); Basophils % (auto) 0.5 %; Eosinophils # (auto) 0.27 K/uL (0-0.50); Immature Granulocytes # (auto) 0.03 K/uL (0.00-0.02); Immature Granulocytes % (auto) 0.4 %; Lymphocytes # (auto) 1.97 K/uL (1.2-3.4); Monocytes # (auto) 0.78 K/uL (0.24-0.82); Neutrophils # (auto) 4.38 K/uL (1.4-6.5)
[2022-05-02 07:03] LABS: BUN Creatinine Ratio 6.1 (10-20); Calcium 8.6 mg/dl (8.5-10.1); Creatinine Clr Calc Pharmacy 116.3 ml/min; Est GFR (African American) 101.1 ml/min; Est GFR (Non-African American) 87.2 ml/min; Potassium 3.9 mmol/L (3.5-5.1)
[2022-05-02] MEDS: guaiFENesin 600 MG TABCR PO SCH (08:26)
[2022-05-02] MEDS: BENZONATATE 100 MG CAPSULE PO SCH ×2 (08:26→13:52)
[2022-05-02] MEDS: PANTOprazole 40 MG in SYRINGE 0 ML IV SCH (08:28)
--- NOTE | 2022-05-02 10:04 | Surgery Progress Note ---
Date of Service May 02, 2022 Assessment & Plan (1) Diverticulitis of intestine with perforation and abscess: Plan: clinically improving advance to low fiber diet today for lunch can consider home if tolerate soft diet since he has had 3 days of IV abx Will need total of 14 days of IV and PO abx will need colonoscopy in 6-8 weeks and follow-up with GI specialist back at home Discussed with Dr. Nguyen who agrees with above. Admission and Anticipated Discharge Date Admission Date: April 29, 2022 Supervising Physician Co-Signing Physician Notes I have seen examined the patient agree with the above assessment plan. He continues to improve. He is tolerating diet. He will be discharged home on oral antibiotics. He will need follow-up colonoscopy and GI. Subjective feeling better today slight appetite today, was craving coffee no n,v liquid bowel movements abdominal pain improved and minimal at this time Physical Exam Constitutional: WD/WN, vitals as above + overweight; no acute distress and not ill appearing Respiratory: normal respiratory effort; no respiratory distress Gastrointestinal (Abdomen): Inspection/Auscultation: abdomen normal to inspection; abdomen not distended Percussion/Palpation: abdomen soft; abdomen nontender, no guarding and abdomen not rigid Skin: no rashes, warm and dry Psychiatric: A+Ox3, euthymic affect Results & Data ([facility]) Vital Signs (Past 12 Hours) Vital Signs Temp Pulse Resp BP Pulse Ox O2 Del Method 05/02/22 07:22 Room Air 05/02/22 07:25 36.6 C 88 16 115/74 95 Room Air 05/01/22 22:25 36.8 C 83 16 130/84 97 Room Air Laboratory Results 05/02/22 05/02/22 Range/Units 06:00 06:00 WBC 7.47 (4.8-10.8) K/ul RBC 4.26 L (4.63-6.08) M/uL Hgb 13.1 L (14.0-18.0) g/dl Hct 38.0 L (40.1-51.0) % MCV 89.2 (80.0-100.0) fL MCH 30.8 (25.0-34.0) pg MCHC 34.5 (32.0-36.0) g/dL RDW Std Deviation 39.1 (36.4-46.3) fL RDW Coeff of Britt 12.1 (11.5-14.5) % Plt Count 248 (130-400) K/uL MPV 10.4 (9.4-12.4) fL Immature Gran % (Auto) 0.4 % Neut % (Auto) 58.7 % Lymph % (Auto) 26.4 % Desha % (Auto) 10.4 % Eos % (Auto) 3.6 % Baso % (Auto) 0.5 % Neut # (Auto) 4.38 (1.4-6.5) K/uL Lymph # (Auto) 1.97 (1.2-3.4) K/uL Desha # (Auto) 0.78 (0.24-0.82) K/uL Eos # (Auto) 0.27 (0-0.50) K/uL Baso # (Auto) 0.04 (0-0.2) K/uL Immature Gran # (Auto) 0.03 H (0.00-0.02) K/uL Sodium 136 (136-145) mmol/L Potassium 3.9 (3.5-5.1) mmol/L Chloride 106 (98-107) mmol/L Carbon Dioxide 23 (21-32) mmol/L Anion Gap 7 (3-11) BUN 6 (6-23) mg/dl Creatinine 0.99 (0.6-1.4) mg/dl Est Cr Clr Drug Dosing 116.3 ml/min Est GFR ( Amer) 101.1 ml/min Est GFR (Non-Af Amer) 87.2 ml/min BUN/Creatinine Ratio 6.1 L (10-20) Glucose 92 (70-99(Fasting)) mg/dl Calcium 8.6 (8.5-10.1) mg/dl
--- NOTE | 2022-05-02 12:54 | Discharge Summary ---
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 He has a known history of diverticulitis found on colonoscopy about 8 years ago. The patient had a week of decreased appetite and yellow diarrhea. The patient was put on antibiotics from his primary care provider approximately 3 days prior to admission he cannot recall the name of these. Patient presents today with dark black bowel movements and abdominal pain in the lower quadrants he is found to be tachycardic on arrival and hypertensive. He does not have a leukocytosis but he is found to have a diverticular abscess with microperforation on CT scan General surgery consultation Dr. Shafer recommended admission for medical management of the abscess and microperforation he was given Zosyn in the ER but will be converted to Cipro Flagyl General surgery be consulted to follow along. This patient is from [place] and plans to return to [place] he is discu ssing with his family whether they would want me to call the family physician and possibly arrange a hospital hospital transfer. Principal Diagnosis 1. Acute COMPLICATED sigmoid diverticulitis with microperforation and abscess (<3cm) 2. URI Discharge Exam gen - NAD, looks great, obese mouth - mmm neck - no JVD heart - RRR, s1 s2, no murmur lungs - CTA b/l abd - soft NT ND BS+; no HSM; no peritoneal signs ext - no edema, pulses 2+ b/l Discharge Data Allergies Allergy/AdvReac Type Severity Reaction Status Date / Time No Known Allergies Allergy Unverified 04/29/22 14:50 Consultations [facility] Surgery Burn CD for patient Ordered Studies Abdomen/Pelvis CT 04/29/22 10:02 CT abd pelvis IV con only CLINICAL HISTORY: llq pain TECHNIQUE: Helical axial images of the abdomen and pelvis were obtained and displayed. Automated dose lowering techniques and/or adjustment according to patient size were utilized for this exam. This exam was performed with intravenous contrast. CT DOSE: 1508.17 mGy.cm COMPARISON: None available at the time of this dictation. FINDINGS: Lower chest: Mild atherosclerotic disease is seen in the coronary arteries. Liver: Unremarkable. No focal lesions are seen. Gallbladder and biliary tree: Patient is status post cholecystectomy. No intra- or extrahepatic biliary ductal dilation. Pancreas: Unremarkable, no focal lesions. Spleen: Unremarkable. Adrenals: Unremarkable. Kidneys and ureters: Unremarkable. Bladder: Unremarkable. Reproductive organs: Unremarkable. Bowel: Numerous diverticula are seen. There is mild thickening of the sigmoid: With a gas and fluid collection adjacent to it. There is also extensive stranding about adjacent loops of small bowel, several which are dilated measuring up to 35 mm in diameter. Lymph nodes Retroperitoneal: Subcentimeter retroperitoneal and kerri hepatis nodes are noted. Pelvic: Unremarkable. Mesenteric: Subcentimeter lymph nodes are noted. Peritoneum: Prominent fat stranding is seen in the left lower quadrant about the sigmoid colon and multiple loops of bowel. Trace free pelvic fluid is seen. A small gas and fluid collection is noted. No free air is seen. Vessels: Atherosclerotic calcifications are seen. Abdominal wall: A fat-containing umbilical hernia is seen. Bones: Unremarkable. IMPRESSION: There is wall thickening and stranding about the sigmoid colon and loops of small bowel. A gas and fluid collection is seen which may represent a contained perforation or abscess. Findings are favored to represent a primary diverticulitis with perforation/abscess and secondary involvement of adjacent loops of small bowel. ACT 112: Negative or not required by law. Electronically signed by: Duong Walker M.D. 04/29/2022 11:32 AM Chest X-Ray 05/01/22 18:01 XR chest 2V PA/lateral HISTORY: 51 years-old Male cough x 2 weeks subacute cough COMPARISON: CT abdomen and pelvis 04/29/2022 TECHNIQUE: PA and lateral views of the chest FINDINGS: Cardiomediastinal and hilar silhouettes are within normal limits. No pneumothorax, pleural effusion, airspace consolidation or overt pulmonary edema. Bones appear grossly intact. IMPRESSION: No acute process. ACT 112: Negative or not required by law. The above report was generated using voice recognition software. It may contain grammatical, syntax or spelling errors. Electronically signed by: Deion Freed M.D. 05/01/2022 6:54 PM Hospital Course (1) Diverticulitis of intestine with perforation and abscess: Patient presented with acute complicated sigmoid diverticulitis with microperforation & abscess. The abscess was <3cm in diameter. He was treated with broad-spectrum IV antibiotics, IV fluids, pain medication, and bowel rest. He received 3 days of IV antibiotic therapy. Yates recommendations were made by general surgery during his stay. He clinically improved with the above measures. Diet was ultimately resumed and slowly advanced to low fiber. He tolerated the low fiber diet without any GI symptoms or pain. On day of discharge he was transitioned to oral augmentin 875mg twice daily. He will complete 11 more days of augmentin at home. Low fiber diet was advised for 1 month post-discharge. The patient was counseled that he should - * f/u with his PCP within a few days of discharge in [place] * f[facility] with [facility] ([facility]) - he will need outpatient colonoscopy in about 8 weeks * a CD copy of the patient's CT scan of the abd/pelvis was given to patient at time of discharge Of note - this is at least his 3rd episode of sigmoid diverticulitis over the last 5-6 years. He had radiographically confirmed sigmoid diverticulitis in 2015. He was also treated clinically for diverticulitis in 2020. (2) URI (upper respiratory infection): Cough/congestion present x 1-2 weeks prior to admission. O2 sats wnl the entire stay. CXR negative for pneumonia while here. Plan Patient was planning to drive back to [place] from [place], [place], about 24 hours post-discharge. He was counseled regarding DVT prevention including frequent stops while traveling, walking & stretching during those breaks, etc Total Time Total Time Spent Total Time Spent (In Minutes): 40 Discharge Plan Discharge Items Patient Disposition: Home - Self-Care Reason For Visit: COLONIC ABSCESS, PERFORATION Discharge Diagnosis: Sigmoid diverticulitis with microperforation and a small abscess (<3cm) Recent upper respiratory infection Activity: As commented below Activity Comment: light activities over the next 10 days as you recover Sexual Activity: Wait until after follow-up appointment Exercise/Sports: Wait until after follow-up appointment Driving/Machine Use: Resume 1 day after discharge Non-emergency contact: Primary Care Provider and [employer] Call non-emergency contact if: you have any medication questions, your symptoms worsen, your pain is not controlled, your pain is worsening, your pain is unusual for you, your pain is concerning for you and you have a fever Follow-up/Referrals: Venu Lo MD [Other] (please see Dr Lo or one of his associates at the Gastroenterology clinic in [place] within 1 week to discuss your diverticulitis, need for colonoscopy, etc. Be sure to bring the CD disc with you of your scans. fax # of office: [phone] ) Diet: Low Fiber Addtl Attending Provider Instructions: Mr Srinivasan, You were hospitalized for sigmoid diverticulitis. The sigmoid is the last portion of the colon before the rectum. It is a common location for diverticular disease and diverticulitis. Unfortunately your CT scan showed that you had "microperforation" and a small diverticular abscess. The abscess was less than 3cm in size. You improved nicely with diet restriction, IV fluids, IV antibiotics, and time. Microperforation means that some of the diverticular pockets allowed tiny amounts of air to escape from your colon. The air deposits itself right next to the lining of the colon. We call this a "contained" perforation. Our surgical team followed you during the stay and made yates recommendations for your care. Please see their recommendations under "financial consultant instructions." Records were obtained from your GI doctor back home. You had sigmoid diverticulitis in September 2015. You then had presumed diverticulitis again in 2020. Thus, this is at least your 3rd episode of diverticulitis. Recommendations - 1. stop the ciprofloxacin 2. stop the metronidazole 3. start augmentin (amoxicillin-clavulanate) 875mg twice daily x 11 more days, first dose tonight; take with food 4. low fiber diet x 4 weeks (see handout) 5. see your gastroenterology specialist in [place] within 1 week 6. see your family doctor within 3-5 days 7. during your car ride home to [place] please stop about every 1 hour to stretch your legs and walk to prevent DVT blood clots 8. you may take grit-mfj-nanpnks mucinex up to 1200mg twice daily as desired for cough 9. you may use prescribed benzonatate perles, 100-200mg every 8 hours as needed for cough; do not chew these perles; swallow whole Return to [facility] or any hospital IF - * you develop fevers over 100 degrees * you develop recurrent abdominal pain * you have severe nausea or vomiting * you have severe diarrhea or blood in the stool * any other concerns Please continue to feel better! Safe travels home, Dr Kevin Fuller Senior Web Engineer Provider Instructions: Surgical recommendations: Low fiber diet for 4 weeks Continue entire course of oral antibiotics as prescribed Follow-up with your GI specialist as already scheduled. Will need colonoscopy in 6-8 weeks. Pending Studies at Discharge: No Stand-Alone Forms: [facility], Smoking Cessation Medications and DC Order Prescriptions: New benzonatate 100 mg Capsule 100 - 200 mg PO TID PRN (Reason: cough) Qty: 20 0RF amoxicillin-pot clavulanate 875-125 mg tablet 1 tab PO BID 11 Days Qty: 22 0RF Rx Instructions: take first dose PM of 05/02/22 with food. Continued fluticasone propionate [Flonase Allergy Relief] 50 mcg/actuation [place],Suspension 2 spray INTRANASAL DAILY Rx Instructions: administer into each nostril loratadine [Claritin] 10 mg Tablet 10 mg PO DAILY glucosamine-chondroitin [Osteo Bi-Flex] 250-200 mg Tablet 2 tab PO PC Discontinued ciprofloxacin HCl 500 mg tablet 500 mg PO BID Rx Instructions: BEGIN 04/26/22 X 10 DAYS metronidazole 500 mg tablet 500 mg PO TID Rx Instructions: BEGIN 04/26/22 X 10 DAYS Discharge Orders: Discharge Order (Routine); Ordered 05/02/22 Ordered By: Paul Penn/Other Patient Handouts: Low-Fiber Diet, Diverticulosis and Diverticulitis, Anatomy of the Digestive System Admission Data Admit Date/Time: 04/29/22 12:03 Attending Provider: Paul Brown Admit Provider: Pro Carreon Primary Care Provider: PCP,NO Other Providers: Pro Carreon ; Toni Fields Other Interventions: Discharge Summary Assessment (RN) Last Done: 05/02/22 13:50 Coding Level of Care Code D/C DAY MANAGEMENT >30 MINS Diagnoses Diverticulitis of intestine with perforation and abscess K57.80 URI (upper respiratory infection) J06.9
== END 2022-05-02 14:10 | disposition home or self-care (01) | DRG 392 ==
LOC: ED 09:12 → SUATTDRO 12:03 → 3E 12:03

== ENCOUNTER 2022-12-17 13:25 | Inpatient (IN) ==
[2022-12-17 15:07] LABS: Appearance Urine Clear (Clear); Bacteria Urine Automated Negative (Negative); Bilirubin Urine Negative (Negative); Blood Urine Trace (Negative); Cast Urine Automated 0 /lpf (0-5); Color Urine Yellow; Epithelial Cell Urine Auto 0-5 /lpf (0-5); Glucose Urine UA Negative (Negative); Ketones Urine Negative (Negative); Leukocyte Esterase Urine Negative (Negative); Nitrite Urine Negative (Negative); Protein Urine Negative (Negative); RBC Urine Automated 0-4 /hpf (0-4); Specific Gravity Urine 1.013 (1.000-1.030); Urobilinogen Urine Negative (Negative); WBC Urine Automated 0 /hpf (0-5)
[2022-12-17 15:12] LABS: Basophils # (auto) 0.06 K/uL (0-0.2); Basophils % (auto) 0.5 %; Eosinophils # (auto) 0.11 K/uL (0-0.50); Eosinophils % (auto) 0.9 %; Hemoglobin 15.4 g/dl (14.0-18.0); Immature Granulocytes # (auto) 0.05 K/uL (0.01-0.20); Immature Granulocytes % (auto) 0.4 %; Lymphocytes # (auto) 3.41 K/uL (1.2-3.4); Lymphocytes % (auto) 28.4 %; Mean Corpuscular Volume 88.5 fL (80.0-100.0); Mean Platelet Volume 10.1 fL (9.4-12.4); Monocytes % (auto) 6.7 %; Neutrophils # (auto) 7.58 K/uL (1.40-6.50); Neutrophils % (auto) 63.1 %; Platelet Count 270 K/uL (130-400); RDW Coefficient of Variation 12.3 % (11.5-14.5); RDW Standard Deviation 39.5 fL (36.4-46.3); Red Blood Count 4.97 M/uL (4.70-6.10); White Blood Count 12.01 K/ul (4.8-10.8)
[2022-12-17 15:21] LABS: Albumin Globulin Ratio 1.3 (0.9-2); Albumin Level 4.4 gm/dl (3.4-5.0); BUN Creatinine Ratio 14.3 (10-20); Bilirubin,Total 0.9 mg/dl (0.2-1.0); Creatinine Clr Calc Pharmacy 111.3 ml/min; Est GFR (African American) 94.1 ml/min; Est GFR (Non-African American) 81.2 ml/min; Globulin 3.3 gm/dl (2.5-4.0); Potassium 3.9 mmol/L (3.5-5.1); Total Protein 7.7 gm/dl (6.0-8.3)
--- NOTE | 2022-12-17 16:04 | Emergency Department Note ---
Impression & Plan Abdominal pain, acute, bilateral lower quadrant, Diverticulitis ED Provider Note INFORMANT: Patient ED PROVIDER(S): Alon Reed MD CHIEF COMPLAINT: Abdominal pain PLAN: Disposition: Admitted Condition: Good Outpatient prescription management: none Referral: None MEDICAL DECISION MAKING: Patient presented because of abdominal pain. He had a work-up initiated. He had a mild leukocytosis on CBC. Chemistry panel was unremarkable. Patient underwent CT imaging and this revealed diverticulitis with questionable mucosal edema versus intramural abscess. No perforation noted. Because of this the patient was started on IV Zosyn. He was given IV Dilaudid and Zofran. Patient and I discussed further management in the hospital and he was in agreement. [facility] Patient was evaluated in the ER admitted for further management. Discussed with supplemental manager After review of the information above and other included data, I feel the patient disposition. Triage Nursing notes reviewed and agree them. Vital Signs: reviewed and remarkable for no significant abnormalities Prior /Outside records reviewed: Prior hospitalization record reviewed for diverticulitis. Patient had a microperforate with small abscess. Differential diagnosis: Diverticulitis appendicitis, testicular torsion, infections, UTI, obstruction, mesenteric ischemia, aortic pathology, inflammatory bowel disease, renal colic, PUD, pancreatitis, biliary pathology, hernia, volvulus, constipation, as well as other pathologies. Diagnostics, as interpreted by me: ECG: none Cardiac Monitoring: none Medical decision rules: none Imaging studies: CT scan as noted above HPI: The patient is a 51 year old male who presents to the Emergency Room with complaints of lower abdominal pain. This started about 5 days ago and is in the lower aspect and is fluctuating. Patient notes it was severe then improved but then became severe again over the last few days. The patient also notes the following associated symptoms, none. The patient has taken no medication for relieving factors. Current pain is rated as 6/10. Patient does note pain was a 9 out of 10 earlier today. Patient has a history of diverticulitis and is concerned that this is the same. Pt denies LOC, headache, fevers, chills, diaphoresis, visual changes, neck pain, chest pain, breathing difficulties, nausea, vomiting, back pain, melena, hematochezia, urinary symptoms, numbness, weakness, lymphadenopathy, rash, or other complaints. 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 Oropharynx unremarkable. EYES: Normal conjunctiva. Sclera non-icteric. NECK: Inspection normal. Non-tender. Supple. No nuchal rigidity. FROM. No masses. RESPIRATORY: Clear to auscultation. No wheezes. No rales. Normal respiratory effort. CARDIAC: Normal rate. Normal rhythm. No murmurs. No rubs. Extremities warm and well perfused. Pulses equal. No JVD. GI: Soft, non-distended. Bilateral lower quadrant tenderness to palpation. No rebound but mild guarding. No masses. RECTAL: Deferred. MUSCULOSKELETAL: Atraumatic. Chest examination reveals no tenderness. The back is symmetrical on inspection without obvious abnormality. There is no CVA tenderness to palpation. No joint edema. LOWER EXTREMITIES: Calves are equal size bilaterally and non-tender. No edema. No discoloration. NEURO: Normal sensorium. No sensory or motor deficits noted. SKIN: No rash or jaundice noted. Past Med/Surg History Medical History Diverticulitis Mnire's disease No pertinent family history Surgical History H/O bilateral inguinal hernia repair Hx of cholecystectomy Social History Smoking Status: Former smoker Do You Dip or Chew Tobacco: Yes (Occasionally); Hx Alcohol Use: Yes Alcohol type: beer Alcohol Intake Frequency: Monthly or Less Hx Substance Use: No Preferred Language: Egyptian Communication Ability: Effective Chip Applying Machine Tender Required: No Beliefs That Will Affect Care: None Current Living Situation: Family Feels Safe at Home: Yes Assistive Devices: Glasses and Hearing Aid - Bilateral Allergies Allergies Allergy/AdvReac Type Severity Reaction Status Date / Time No Known Allergies Allergy Unverified 12/17/22 18:12 Home Meds Home Medications Medication Instructions Recorded Confirmed fluticasone propionate 50 2 spray intranasal DAILY 04/29/22 12/17/22 mcg/actuation nasal spray,suspension (Flonase Allergy Relief) glucosamine-chondroitin 250 mg-200 2 tab PO PC 04/29/22 12/17/22 mg tablet (Osteo Bi-Flex) loratadine 10 mg tablet (Claritin) 10 mg PO DAILY 04/29/22 12/17/22 omega 9-tas-qxa-fish oil 1,000 mg 1 cap PO DAILY 12/17/22 12/17/22 (120 mg-180 mg) capsule (Fish Oil) Results & Data (ED) Vital Signs Vital Signs - 24 hr 12/17/22 13:43 12/17/22 17:48 12/17/22 18:45 Temperature 36.4 C L Temperature Source Temporal Artery Scan Pulse Rate 78 79 Pulse Rate [Finger] 82 Respiratory Rate 16 18 Respiratory Effort / Characteristics Non-Labored Spontaneous Respiratory Depth Normal Respiratory Pattern Regular Blood Pressure 176/94 H Blood Pressure [Right Arm] 141/99 H Blood Pressure Mean 121 Blood Pressure Mean [Right Arm] 113 Blood Pressure Position Sitting Blood Pressure Position [Right Arm] Sitting Pulse Oximetry 97 99 Oxygen Delivery Method Room Air Room Air Sepsis Recent Fever Within 48 Hours No Sepsis New/Unexplained Change in Mental Status N/A Sepsis Action Taken by Nursing No Action Required Laboratory Data 12/17/22 14:43 12/17/22 14:43 Lab Results 12/17/22 12/17/22 12/17/22 Range/Units 14:43 14:43 14:43 WBC 12.01 H (4.8-10.8) K/ul RBC 4.97 (4.70-6.10) M/uL Hgb 15.4 (14.0-18.0) g/dl Hct 44.0 (42.0-52.0) % MCV 88.5 (80.0-100.0) fL MCH 31.0 (25.0-34.0) pg MCHC 35.0 (32.0-36.0) g/dL RDW Std Deviation 39.5 (36.4-46.3) fL RDW Coeff of Britt 12.3 (11.5-14.5) % Plt Count 270 (130-400) K/uL MPV 10.1 (9.4-12.4) fL Immature Gran % (Auto) 0.4 % Neut % (Auto) 63.1 % Lymph % (Auto) 28.4 % [place] % (Auto) 6.7 % Eos % (Auto) 0.9 % Baso % (Auto) 0.5 % Neut # (Auto) 7.58 H (1.40-6.50) K/uL Lymph # (Auto) 3.41 H (1.2-3.4) K/uL [place] # (Auto) 0.80 H (0.11-0.59) K/uL Eos # (Auto) 0.11 (0-0.50) K/uL Baso # (Auto) 0.06 (0-0.2) K/uL Immature Gran # (Auto) 0.05 (0.01-0.20) K/uL Sodium 135 L (136-145) mmol/L Potassium 3.9 (3.5-5.1) mmol/L Chloride 103 (98-107) mmol/L Carbon Dioxide 27 (21-32) mmol/L Anion Gap 5 (3-11) BUN 15 (6-23) mg/dl Creatinine 1.05 (0.6-1.4) mg/dl Est Cr Clr Drug Dosing 111.3 ml/min Est GFR ( Amer) 94.1 ml/min Est GFR (Non-Af Amer) 81.2 ml/min BUN/Creatinine Ratio 14.3 (10-20) Glucose 92 (70-99(Fasting)) mg/dl Calcium 9.0 (8.6-10.3) mg/dl Total Bilirubin 0.9 (0.2-1.0) mg/dl AST 17 (13-39) U/L ALT 25 (7-52) U/L Alkaline Phosphatase 71 (34-104) U/L Total Protein 7.7 (6.0-8.3) gm/dl Albumin 4.4 (3.4-5.0) gm/dl Globulin 3.3 (2.5-4.0) gm/dl Albumin/Globulin Ratio 1.3 (0.9-2) Lipase 23 (11-82) U/L Urine Color Yellow Urine Appearance Clear (Clear) Urine pH 5.0 (4.5-7.5) Ur Specific [place] 1.013 (1.000-1.030) Urine Protein Negative (Negative) Urine Glucose (UA) Negative (Negative) Urine Ketones Negative (Negative) Urine Blood Trace H (Negative) Urine Nitrite Negative (Negative) Urine Bilirubin Negative (Negative) Urine Urobilinogen Negative (Negative) Ur Leukocyte Esterase Negative (Negative) Urine WBC (Auto) 0 (0-5) /hpf Urine RBC (Auto) 0-4 (0-4) /hpf U Hyaline Cast (Auto) 0 (0-5) /lpf U Epithel Cells (Auto) 0-5 (0-5) /lpf Urine Bacteria (Auto) Negative (Negative) SARS-CoV-2, RNA, NAAT (NEGATIVE) 12/17/22 Range/Units 18:37 WBC (4.8-10.8) K/ul RBC (4.70-6.10) M/uL Hgb (14.0-18.0) g/dl Hct (42.0-52.0) % MCV (80.0-100.0) fL MCH (25.0-34.0) pg MCHC (32.0-36.0) g/dL RDW Std Deviation (36.4-46.3) fL RDW Coeff of Britt (11.5-14.5) % Plt Count (130-400) K/uL MPV (9.4-12.4) fL Immature Gran % (Auto) % Neut % (Auto) % Lymph % (Auto) % [place] % (Auto) % Eos % (Auto) % Baso % (Auto) % Neut # (Auto) (1.40-6.50) K/uL Lymph # (Auto) (1.2-3.4) K/uL [place] # (Auto) (0.11-0.59) K/uL Eos # (Auto) (0-0.50) K/uL Baso # (Auto) (0-0.2) K/uL Immature Gran # (Auto) (0.01-0.20) K/uL Sodium (136-145) mmol/L Potassium (3.5-5.1) mmol/L Chloride (98-107) mmol/L Carbon Dioxide (21-32) mmol/L Anion Gap (3-11) BUN (6-23) mg/dl Creatinine (0.6-1.4) mg/dl Est Cr Clr Drug Dosing ml/min Est GFR ( Amer) ml/min Est GFR (Non-Af Amer) ml/min BUN/Creatinine Ratio (10-20) Glucose (70-99(Fasting)) mg/dl Calcium (8.6-10.3) mg/dl Total Bilirubin (0.2-1.0) mg/dl AST (13-39) U/L ALT (7-52) U/L Alkaline Phosphatase (34-104) U/L Total Protein (6.0-8.3) gm/dl Albumin (3.4-5.0) gm/dl Globulin (2.5-4.0) gm/dl Albumin/Globulin Ratio (0.9-2) Lipase (11-82) U/L Urine Color Urine Appearance (Clear) Urine pH (4.5-7.5) Ur Specific [place] (1.000-1.030) Urine Protein (Negative) Urine Glucose (UA) (Negative) Urine Ketones (Negative) Urine Blood (Negative) Urine Nitrite (Negative) Urine Bilirubin (Negative) Urine Urobilinogen (Negative) Ur Leukocyte Esterase (Negative) Urine WBC (Auto) (0-5) /hpf Urine RBC (Auto) (0-4) /hpf U Hyaline Cast (Auto) (0-5) /lpf U Epithel Cells (Auto) (0-5) /lpf Urine Bacteria (Auto) (Negative) SARS-CoV-2, RNA, NAAT NEGATIVE (NEGATIVE) Administered Medications Morphine Sulfate (Morphine Sulfate 4 Mg/Ml 1 Ml Carp\Vial) 4 mg IV Q4H PRN PRN Reason: Pain(5+) Stop: 12/31/22 18:19 Last Admin: 12/17/22 19:03 Dose: 4 mg Documented By: RIANA Discontinued Medications Piperacillin Sod/Tazobactam Sod (Zosyn) 4.5 gm in 120 mls @ 240 mls/hr IV NOW ONE Stop: 12/17/22 18:16 Last Infusion: 12/17/22 19:07 Dose: 0 mls/hr Documented By: Admin: 12/17/22 18:34 Dose: 240 mls/hr Documented By: QGV Lactated Ringer's (Lr) 1,000 mls @ 999 mls/hr IV .Q1H1M ONE Stop: 12/17/22 19:10 Last Admin: 12/17/22 18:34 Dose: 999 mls/hr Documented By: QGV Ioversol (Optiray 320 100ml) 93 ml IV ONCE ONE Stop: 12/17/22 16:42 Last Admin: 12/17/22 16:41 Dose: 93 ml Documented By: ENID Ondansetron HCl (Ondansetron Inj 2 Mg/Ml 2 Ml Vial) 4 mg IV NOW STA Stop: 12/17/22 17:48 Last Admin: 12/17/22 19:06 Dose: Not Given Documented By: MAS Imaging Data Radiologist's Impression: Abdomen/Pelvis CT 12/17/22 00:[address] WITH IV CONTRAST CT DOSE: HISTORY: Lower abd pain, hx of diverticulitis TECHNIQUE: Multiaxial CT images of the abdomen and pelvis were performed following the use of intravenous contrast. A dose lowering technique was utilized adhering to the principles of ALARA. COMPARISON STUDY: Abdomen and pelvis CT 04/29/2022. FINDINGS: The lung bases are clear. No pneumoperitoneum. No pneumatosis. 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 No acute fractures identified. Tiny fat- containing umbilical hernia. Cholecystectomy. The main portal vein is patent. The liver, pancreas, spleen, and adrenal glands are unremarkable. Normal kidneys. No hydronephrosis. A single prominent 9 mm retroperitoneal lymph node on image 168. This remains stable and is therefore likely benign. No retroperitoneal or pelvic lymphadenopathy. Mild calcified plaque within the normal caliber abdominal aorta. Normal bladder. No pelvic free fluid. Focal thickening within the proximal sigmoid colon within inflamed diverticulum and pericolonic fat stranding. This is consistent with acute diverticulitis. Hypodensity within the wall of the thickened sigmoid colon measuring 3 cm on image 268. This favors submucosal edema. A developing intramural abscess could also have a similar appearance. No evidence for microperforation or a pericolo gustavo abscess at this time. No dilated loops of bowel to suggest an obstruction. Normal appendix. IMPRESSION: 1. Acute sigmoid diverticulitis. 2. Hypodensity within the wall of the thickened sigmoid colon measuring 3 cm. This favors submucosal edema. A developing intramural abscess could also have a similar appearance. No evidence for microperforation or a pericolonic abscess at this time. 3. No dilated loops of bowel to suggest an obstruction. 4. Normal appendix. ACT 112: Negative or not required by law. Electronically signed by: Ming Good M.D. 12/17/2022 5:40 PM Discharge Plan Visit Data Chief Complaint: Abdominal Pain Stated Complaint: ABDOMINAL PAIN ED Provider: Alon Reed Discharge Problem: Abdominal pain, acute, bilateral lower quadrant, Diverticulitis Forms Stand Alone Forms: My [facility] Prescriptions Prescriptions: No Action omega 0-zgd-pcz-fish oil [Fish Oil] 1,000 mg (120 mg-180 mg) Capsule 1 cap PO DAILY fluticasone propionate [Flonase Allergy Relief] 50 mcg/actuation [place],Suspension 2 spray INTRANASAL DAILY Rx Instructions: administer into each nostril loratadine [Claritin] 10 mg Tablet 10 mg PO DAILY glucosamine-chondroitin [Osteo Bi-Flex] 250-200 mg Tablet 2 tab PO PC Referrals Referrals: PCP,NO [Physician] -
[2022-12-17] MEDS ORDERED: OPTIRAY 320 100ml IV ONE (16:41)
--- NOTE | 2022-12-17 17:43 | CT Scan Report ---
ABDOMEN AND PELVIS CT WITH IV CONTRAST CT DOSE: HISTORY: Lower abd pain, hx of diverticulitis TECHNIQUE: Multiaxial CT images of the abdomen and pelvis were performed following the use of intrave nous contrast. A dose lowering technique was utilized adhering to the principles of ALARA. COMPARISON STUDY: Abdomen and pelvis CT 04/29/2022. FINDINGS: The lung bases are clear. No pneumoperitoneum. No pneumatosis. There is a right L5 pars def ect again noted. No acute fractures identified. Tiny fat-containing umbilical hernia. Cholecystectomy . The main portal vein is patent. The liver, pancreas, spleen, and adrenal glands are unremarkable. N ormal kidneys. No hydronephrosis. A single prominent 9 mm retroperitoneal lymph node on image 168. Th is remains stable and is therefore likely benign. No retroperitoneal or pelvic lymphadenopathy. Mild calcified plaque within the normal caliber abdominal aorta. Normal bladder. No pelvic free fluid. Foc al thickening within the proximal sigmoid colon within inflamed diverticulum and pericolonic fat stra nding. This is consistent with acute diverticulitis. Hypodensity within the wall of the thickened sig moid colon measuring 3 cm on image 268. This favors submucosal edema. A developing intramural abscess could also have a similar appearance. No evidence for microperforation or a pericolonic abscess at t his time. No dilated loops of bowel to suggest an obstruction. Normal appendix. IMPRESSION: 1. Acute sigmoid diverticulitis. 2. Hypodensity within the wall of the thickened sigmoid colon measuring 3 cm. This favors submucosal edema. A developing intramural abscess could also have a similar appearance. No evidence for microper foration or a pericolonic abscess at this time. 3. No dilated loops of bowel to suggest an obstruction. 4. Normal appendix. ACT 112: Negative or not required by law. Electronically signed by: Ming Good M.D. 12/17/2022 5:40 PM
[2022-12-17] MEDS ORDERED: HYDROmorphone INJ 0.5 MG/0.5 ML SYR IV PRN (17:47)
[2022-12-17] MEDS ORDERED: ONDANSETRON INJ 2 MG/ML 2 ML VIAL IV STA (17:47)
[2022-12-17] MEDS ORDERED: PIPERACILLIN/TAZOBACTAM 4.5 GM/120 ML BAG IV ONE (17:47)
[2022-12-17] MEDS ORDERED: LACTATED RINGER'S 1,000 ML IV ONE (18:10)
--- NOTE | 2022-12-17 18:11 | History & Physical Report ---
Date of Service December 17, 2022 Assessment & Plan (1) Sigmoid diverticulitis: Plan: -Admit to med/tele -Currently stable and non-toxic appearing -Abd pain started approximately 1 week ago, exacerbated after having 4 beers last night -CT of the abd/pelvis showing acute sigmoid diverticulitis -CT aslo showing "Hypodensity within the wall of the thickened sigmoid colon measuring 3 cm. This favors submucosal edema. A developing intramural abscess could also have a similar appearance.". -Will consult General Surgery to evaluate and follow -S/P one dose of Zosyn in the ED, will continue with Zosyn for now -Strict NPO -Will give 1L LR bolus now then continue on maintenance regimen while NPO -Will obtain lactate STAT -IV tylenol and IV morphine for pain -SQ lovenox for DVT PPX -AM CBC, CMP, Mag Plan The patient was discussed with Dr. Guzman at the time of the admission History of Present Illness Chief Complaint: Abd pain Primary Care Provider: DARWIN DILLON Pinedo is a 51 year old male with a PMH significant for multiple episodes of diverticulitis who presented to the [facility] ED on 12/17 with a chief complaint of lower abdominal pain. In the ED vitals were stable Labs were significant for a leukocytosis of 12. CT of the abd/pelvis w/IV con was read as "1. Acute sigmoid diverticulitis. 2. Hypodensity within the wall of the thickened sigmoid colon measuring 3 cm. This favors submucosal edema. A developing intramural abscess could also have a similar appearance. No evidence for microperforation or a pericolonic abscess at this time. 3. No dilated loops of bowel to suggest an obstruction. 4. Normal appendix.". Prior to admission the patient was given a dose of Zosyn and IV Dilaudid. At the time of the exam the patient was sitting in bed in no acute distress. He states that he deals with chronic, intermittent LLQ and lower abdominal pain since his last admission for diverticulitis. Approximately a week ago he started to develop his LLQ/lower abdominal pain. He describes the pain as sharp/stabbing, exacerbated with eating, and an 8/10 at it's most severe. He adjusted his diet to decrease his fiber intake and his symptoms were improving. Last night he did have 4 beers at their friend's house, he thinks this exacerbated the diverticulitis. Since this am he has been having constant, 8/10 pain. He denies recent fever, chills, chest pain, SOB, nausea, vomiting, diarrhea, bloody BM/melena, dysuria hematuria, LE swelling and recent trauma. He has a [employer] back home in [place] that he follows with. His last colonoscopy was approximately 6 weeks after his last admission to [facility] in April of last year. He will follow up with his foot tender on discharge. Please refer to Dr. Guzman's attestation for any changes to the treatment plan Allergies Allergy/AdvReac Type Severity Reaction Status Date / Time No Known Allergies Allergy Unverified 12/17/22 18:12 Home Medications Medication Instructions Recorded Confirmed Type fluticasone propionate 50 2 spray intranasal DAILY 04/29/22 12/17/22 History mcg/actuation nasal spray,suspension (Flonase Allergy Relief) glucosamine-chondroitin 250 mg-200 2 tab PO PC 04/29/22 12/17/22 History mg tablet (Osteo Bi-Flex) loratadine 10 mg tablet (Claritin) 10 mg PO DAILY 04/29/22 12/17/22 History omega 6-mzl-kuw-fish oil 1,000 mg 1 cap PO DAILY 12/17/22 12/17/22 History (120 mg-180 mg) capsule (Fish Oil) Past Med/Surg History Medical History Diverticulitis Mnire's disease No pertinent family history Surgical History H/O bilateral inguinal hernia repair Hx of cholecystectomy Social History Smoking Status: Never smoker Do You Dip or Chew Tobacco: No; Hx Alcohol Use: No Hx Substance Use: No Preferred Language: Senegalese Communication Ability: Effective Ultrasound Manager Required: No Beliefs That Will Affect Care: None Current Living Situation: Spouse Current Living Situation Comment: with Other Information That Helps Us Care for You: No Feels Safe at Home: Yes Safety Concerns: Feels Safe At This Time Assistive Devices: Glasses Physical Exam Physical Exam: Physical Exam: General: In no acute distress, stated age, well-nourished, good hygiene HEENT: Normocephalic, atraumatic, no scleral icterus, pupils around round, symmetrical, and reactive to light, moist mucus membranes, trachea midline, no thyromegaly Chest/Pulm: No respiratory distress, symmetrical chest expansion, clear breath sounds throughout Cardiac: RRR, no murmurs noted Abdomen: Negative for ascites and bruising, normoactive bowel sounds, soft, mildly tender to palpation in the LLQ, no rebound tenderness Musculoskeletal: Symmetrical and without signs of acute trauma, upper and lower extremities with full ROM, no atrophy, spasticity, or flaccidity Extremities: Radial, dorsalis pedis, and posterior tibial pulses are intact and symmetrical, no edema noted in the BL LE's Skin: Warm, dry, no rashes , lesions, or scars noted Neuro: Alert and oriented to person, place, month, year, and president, no focal defects, no tremors noted Psych: No acute distress, calm and cooperative during the exam Results & Data Results & Data Vital Signs (Past 12 Hours) Vital Signs Temp Pulse Pulse Resp BP BP Pulse Ox 12/17/22 17:48 82 18 141/99 H 99 12/17/22 13:43 36.4 C L 78 16 176/94 H 97 O2 Del Method 12/17/22 17:48 Room Air 12/17/22 13:43 Room Air Laboratory Results Abnormal lab results 12/17/22 12/17/22 12/17/22 Range/Units 14:43 14:43 14:43 WBC 12.01 H (4.8-10.8) K/ul Neut # (Auto) 7.58 H (1.40-6.50) K/uL Lymph # (Auto) 3.41 H (1.2-3.4) K/uL [place] # (Auto) 0.80 H (0.11-0.59) K/uL Sodium 135 L (136-145) mmol/L Urine Blood Trace H (Negative) Diagnostic Findings Abdomen/Pelvis CT 12/17/22 00:[address] WITH IV CONTRAST CT DOSE: HISTORY: Lower abd pain, hx of diverticulitis TECHNIQUE: Multiaxial CT images of the abdomen and pelvis were performed following the use of intravenous contrast. A dose lowering technique was utilized adhering to the principles of ALARA. COMPARISON STUDY: Abdomen and pelvis CT 04/29/2022. FINDINGS: The lung bases are clear. No pneumoperitoneum. No pneumatosis. 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 No acute fractures identified. Tiny fat-containing umbilical hernia. Cholecystectomy. The main portal vein is patent. The liver, pancreas, spleen, and adrenal glands are unremarkable. Normal kidneys. No hydronephrosis. A single prominent 9 mm retroperitoneal lymph node on image 168. This remains stable and is therefore likely benign. No retroperitoneal or pelvic lymphadenopathy. Mild calcified plaque within the normal caliber abdominal aorta. Normal bladder. No pelvic free fluid. Focal thickening within the proximal sigmoid colon within inflamed diverticulum and pericolonic fat stranding. This is consistent with acute diverticulitis. Hypod ensity within the wall of the thickened sigmoid colon measuring 3 cm on image 268. This favors submucosal edema. A developing intramural abscess could also have a similar appearance. No evidence for microperforation or a pericolonic abscess at this time. No dilated loops of bowel to suggest an obstruction. Normal appendix. IMPRESSION: 1. Acute sigmoid diverticulitis. 2. Hypodensity within the wall of the thickened sigmoid colon measuring 3 cm. This favors submucosal edema. A developing intramural abscess could also have a similar appearance. No evidence for microperforation or a pericolonic abscess at this time. 3. No dilated loops of bowel to suggest an obstruction. 4. Normal appendix. ACT 112: Negative or not required by law. Electronically signed by: Ming Good M.D. 12/17/2022 5:40 PM Code Status & VTE Plan Code Status Full code VTE Prophylaxis Plan VTE Prophylaxis will be ordered: Yes Supervising Physician Co-Signing Physician Notes I personally saw and examined the patient. I verified all ryan points and agree with Khris Gómez PA-C with the following exceptions and/or additions: 51 year old male presents to the ER [facility] LLQ abdominal pain. "too many episodes to count" of diverticulitis. Initially tried to manage at home with going onto a soft diet but thinks he advanced his diet too quickly this time. No fever or chills. O/E A&Ox3, non-toxic appearing, HS RRR, no murmurs, Chest CTAB, Abdo LLQ pain with guarding but no rebound tenderness A/P Sigmoid diverticulitis - NPO, IV Zosyn, IV fluids, consult surgery - good candidate for an elective outpatient sigmoidectomy. Last colonoscopy earlier this year. PG Care Time/CCT Total # of Minutes Spent Total Time Spent with Patient: Total time spent is greater than 50% in coordination of care (as documented) at patient's floor/unit and/or counseling patient: [place] [address] INT INP/OBS CARE 2/55MIN Patient Type Established Medical Decision Making Moderate Complexity Diagnoses Sigmoid diverticulitis K57.32
[2022-12-17] MEDS: MoRPHine SULFATE 4 MG/ML 1 ML CARP\\VIAL IV PRN (19:03)
[2022-12-18] MEDS: ENOXAPARIN INJ 40 MG/0.4 ML SYR SQ SCH ×2 (00:17→20:50)
[2022-12-18] MEDS: LACTATED RINGER'S 1,000 ML IV SCH ×3 (00:17→16:11)
[2022-12-18] MEDS: ACETAMINOPHEN 1,000 MG/100 ML VIAL IV PRN (00:18)
[2022-12-18] MEDS: PIPERACILLIN/TAZOBACTAM 4.5 GM in DEXTROSE 5% 100 ML IV SCH ×3 (00:18→16:44)
[2022-12-18 04:48] LABS: Basophils # (auto) 0.05 K/uL (0-0.2); Basophils % (auto) 0.5 %; Eosinophils # (auto) 0.08 K/uL (0-0.50); Eosinophils % (auto) 0.9 %; Hematocrit (blood only) 40.4 % (42.0-52.0); Hemoglobin 14.1 g/dl (14.0-18.0); Immature Granulocytes # (auto) 0.04 K/uL (0.01-0.20); Immature Granulocytes % (auto) 0.4 %; Lymphocytes # (auto) 2.59 K/uL (1.2-3.4); Lymphocytes % (auto) 28.2 %; Mean Corpuscular Hemoglobin 31.1 pg (25.0-34.0); Mean Corpuscular Hgb Conc 34.9 g/dL (32.0-36.0); Mean Platelet Volume 10.2 fL (9.4-12.4); Monocytes # (auto) 0.75 K/uL (0.11-0.59); Monocytes % (auto) 8.2 %; Neutrophils # (auto) 5.69 K/uL (1.40-6.50); Neutrophils % (auto) 61.8 %; Platelet Count 236 K/uL (130-400); RDW Coefficient of Variation 12.2 % (11.5-14.5); RDW Standard Deviation 39.6 fL (36.4-46.3); Red Blood Count 4.54 M/uL (4.70-6.10)
[2022-12-18 05:06] LABS: Albumin Globulin Ratio 1.3 (0.9-2); Albumin Level 3.9 gm/dl (3.4-5.0); BUN Creatinine Ratio 12.2 (10-20); Bilirubin,Total 1.1 mg/dl (0.2-1.0); Calcium 8.6 mg/dl (8.6-10.3); Est GFR (African American) 84.3 ml/min; Est GFR (Non-African American) 72.8 ml/min; Globulin 2.9 gm/dl (2.5-4.0); Magnesium 1.9 mg/dl (1.7-2.4); Potassium 3.6 mmol/L (3.5-5.1); Total Protein 6.8 gm/dl (6.0-8.3)
[2022-12-18] MEDS: MoRPHine SULFATE 4 MG/ML 1 ML CARP\\VIAL IV PRN ×3 (07:23→20:49)
[2022-12-18] MEDS ORDERED: PANTOprazole 40 MG in SYRINGE 0 ML IV SCH (11:00)
--- NOTE | 2022-12-18 11:59 | Surgery Consultation ---
Date of Consultation December 18, 2022 Assessment & Plan (1) Sigmoid diverticulitis: Plan Patient is afebrile, HD stable with resolved leukocytosis. Continue NPO today, IVF Continue IV antibiotics May have chemical DVT ppx, ambulate, SCDs while in bed F/u am labs and abdominal exam History of Present Illness Reason for Consultation: Abdmonal pain Attending Physician: Dean Flannery MD History of Present Illness Khris is a 51 year old male with a PMH significant for multiple episodes of diverticulitis who presented to the [facility] ED on 12/17 with a chief complaint of lower abdominal pain. In the ED vitals were stable Labs were significant for a leukocytosis of 12. CT of the abd/pelvis w/IV con revealed acute diverticulitis with an intramural 3cm hypodensity questionable edema vs abscess. He was admitted to medicine and a surgical consult was called. Upon my evaluation he states his pain is controlled with pain medications. Denies N/V, not yet passing flatus or having a BM. He began having lower abdominal pain about 5 days ago. Due to previous experiences with diverti culitis, he attempted to back down his diet for a couple of days and thought his symptoms were improving. He then had 4 beers at his neighbor's house after which the pains were exacerbated. He denies recent fever, chills, chest pain, SOB, nausea, vomiting, diarrhea, bloody BM/melena. 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 These are the only two hospital admissions he has had for diverticulitis. He says he formed an abscess with the previous attach that was small enough to be treated with antibiotics. Khris denies any FHX of colon cancer. His last colonoscopy revealed benign polyps. Allergies Allergy/AdvReac Type Severity Reaction Status Date / Time No Known Allergies Allergy Unverified 12/17/22 18:12 Home Medications Medication Instructions Recorded Confirmed Type fluticasone propionate 50 2 spray intranasal DAILY 04/29/22 12/17/22 History mcg/actuation nasal spray,suspension (Flonase Allergy Relief) glucosamine-chondroitin 250 mg-200 2 tab PO PC 04/29/22 12/17/22 History mg tablet (Osteo Bi-Flex) loratadine 10 mg tablet (Claritin) 10 mg PO DAILY 04/29/22 12/17/22 History omega 6-rve-qaf-fish oil 1,000 mg 1 cap PO DAILY 12/17/22 12/17/22 History (120 mg-180 mg) capsule (Fish Oil) Patient History Medical History Diverticulitis Mnire's disease No pertinent family history Surgical History H/O bilateral inguinal hernia repair Hx of cholecystectomy Social History Smoking Status: Never smoker Do You Dip or Chew Tobacco: No; Hx Alcohol Use: No Hx Substance Use: No Preferred Language: Micronesian Communication Ability: Effective Rug Inspector Required: No Beliefs That Will Affect Care: None Current Living Situation: Spouse Current Living Situation Comment: with Other Information That Helps Us Care for You: No Feels Safe at Home: Yes Safety Concerns: Feels Safe At This Time Assistive Devices: Glasses Review of Systems Review of Systems: as stated above Physical Exam Constitutional: cooperative and comfortable; no acute distress and not ill appearing Eyes: + anicteric sclerae, PERRL and EOM intact bilaterally; no nystagmus Respiratory: normal respiratory effort; no respiratory distress, no labored breathing and does not use accessory muscles Gastrointestinal (Abdomen): Inspection/Auscultation: abdomen not distended Percussion/Palpation: abdomen soft; no guarding and abdomen not rigid Tender suprapubic area Results & Data Vital Signs (Past 12 Hours) Vital Signs Temp Pulse Resp BP Pulse Ox O2 Del Method 12/18/22 11:12 36.4 C L 69 18 114/74 98 Room Air 12/18/22 07:30 36.4 C L 80 18 113/78 96 Room Air 12/18/22 03:30 36.6 C 69 18 111/75 98 CPAP PG Care Time/CCT Total # of Minutes Spent Total Time Spent with Patient: Total time spent is greater than 50% in coordination of care (as documented) at patient's floor/unit and/or counseling patient: Coding Level of Care Code 73019 IN/OBS CONSULT LVL 3,45M Diagnoses Sigmoid diverticulitis K57.32
--- NOTE | 2022-12-18 12:45 | Hospitalist Progress Note ---
Date of Service December 18, 2022 Assessment & Plan (1) Sigmoid diverticulitis: Plan: Currently n.p.o. Continue Zosyn, day 2. IV fluids. General surgery consultation appreciated. Serial labs Plan Hopeful discharge to home soon on oral antibiotic Admission and Anticipated Discharge Date Admission Date: December 17, 2022 Subjective Alert and oriented. No complaints. General surgery consultation noted. Currently on Zosyn, day 2. Hopefully we can start clear liquids tomorrow, December 19 Review of Systems Review of Systems: Constitutional-no fever or chills ENT-no blurred vision, no double vision, no epistaxis, no sore throat Respiratory-no cough, no wheezing, no shortness of breath Cardiac-no palpitations, no chest pain, no syncope GI-no nausea, vomiting, diarrhea, melena, hematochezia. -no urinary retention, no urinary incontinence, no dysuria, no hematuria Musculoskeletal-no joint pain, no muscle tenderness Skin-no bruising, no rashes, no pruritus Neuro-no isolated weakness, no paresthesia, no weakness Psych-no depression, no anxiety Physical Exam Physical Exam: General-alert and oriented x3, no fevers, no chills HEENT-head atraumatic and normocephalic, pupils equal and reactive to light, extraocular muscles intact Neck-no lymphadenopathy or thyromegaly, trachea midline Chest-clear to auscultation percussion. No rales wheezing or rhonchi Cardiac-regular rate and rhythm, normal S1 and S2, no murmurs Abdomen-normal bowel sounds, no hepatosplenomegaly. Mild left lower quadrant t enderness. No rebound or guarding Extremities-no cyanosis, clubbing, or edema Neuro-cranial nerves II through XII intact, motor and sensory function within normal limits, strength symmetrical , no focal deficits Psych-normal affect, normal mood Results & Data Results & Data Vital Signs (Past 12 Hours) Vital Signs Temp Pulse Resp BP Pulse Ox O2 Del Method 12/18/22 11:12 36.4 C L 69 18 114/74 98 Room Air 12/18/22 07:30 36.4 C L 80 18 113/78 96 Room Air 12/18/22 03:30 36.6 C 69 18 111/75 98 CPAP Laboratory Results 12/18/22 04:03 12/18/22 04:03 PG Care Time/CCT Total # of Minutes Spent Total Time Spent with Patient: Total time spent is greater than 50% in coordination of care (as documented) at patient's floor/unit and/or counseling patient: Coding Level of Care Code 58191 SUB INP/OBS CARE 3/50MIN Diagnoses Sigmoid diverticulitis K57.32
[2022-12-19] MEDS: PIPERACILLIN/TAZOBACTAM 4.5 GM in DEXTROSE 5% 100 ML IV SCH ×4 (00:05→23:17)
[2022-12-19 06:09] LABS: Basophils # (auto) 0.04 K/uL (0-0.2); Basophils % (auto) 0.4 %; Eosinophils % (auto) 1.1 %; Hematocrit (blood only) 41.3 % (42.0-52.0); Hemoglobin 14.4 g/dl (14.0-18.0); Immature Granulocytes # (auto) 0.03 K/uL (0.01-0.20); Immature Granulocytes % (auto) 0.3 %; Lymphocytes # (auto) 2.05 K/uL (1.2-3.4); Lymphocytes % (auto) 22.5 %; Mean Corpuscular Hemoglobin 31.2 pg (25.0-34.0); Mean Corpuscular Hgb Conc 34.9 g/dL (32.0-36.0); Mean Corpuscular Volume 89.4 fL (80.0-100.0); Mean Platelet Volume 10.3 fL (9.4-12.4); Monocytes # (auto) 0.91 K/uL (0.11-0.59); Neutrophils % (auto) 65.7 %; Platelet Count 232 K/uL (130-400); RDW Coefficient of Variation 12.4 % (11.5-14.5); Red Blood Count 4.62 M/uL (4.70-6.10); White Blood Count 9.13 K/ul (4.8-10.8)
[2022-12-19 06:23] LABS: BUN Creatinine Ratio 9.5 (10-20); Calcium 8.7 mg/dl (8.6-10.3); Creatinine Clr Calc Pharmacy 99.7 ml/min; Est GFR (African American) 83.5 ml/min; Potassium 3.8 mmol/L (3.5-5.1)
[2022-12-19] MEDS: MoRPHine SULFATE 4 MG/ML 1 ML CARP\\VIAL IV PRN (07:39)
[2022-12-19] MEDS: PANTOprazole 40 MG TAB PO SCH (09:18)
[2022-12-19] MEDS: SODIUM CHLORIDE 0.9% 1000ML 1,000 ML IV SCH ×2 (09:18→22:36)
--- NOTE | 2022-12-19 11:22 | Hospitalist Progress Note ---
Date of Service December 19, 2022 Assessment & Plan (1) Sigmoid diverticulitis: Plan: Improving. Clear liquids have been started. Continue Zosyn, day 3. IV fluids tapered down. General surgery consultation appreciated. Serial labs Plan Hopeful discharge to home soon on oral antibiotic . Possibly tomorrow, December 20 Admission and Anticipated Discharge Date Admission Date: December 17, 2022 Subjective Alert and oriented. Afebrile. He feels as if he is improving. Zosyn day 3. Clear liquid diet has been started and IV fluids taper down. Review of Systems Review of Systems: Constitutional-no fever or chills ENT-no blurred vision, no double vision, no epistaxis, no sore throat Respiratory-no cough, no wheezing, no shortness of breath Cardiac-no palpitations, no chest pain, no syncope GI-no nausea, vomiting, diarrhea, melena, hematochezia. -no urinary retention, no urinary incontinence, no dysuria, no hematuria Musculoskeletal-no joint pain, no muscle tenderness Skin-no bruising, no rashes, no pruritus Neuro-no isolated weakness, no paresthesia, no weakness Psych-no depression, no anxiety Physical Exam Physical Exam: General-alert and oriented x3, no fevers, no chills HEENT-head atraumatic and normocephalic, pupils equal and reactive to light, extraocular muscles intact Neck-no lymphadenopathy or thyromegaly, trachea midline Chest-clear to auscultation percussion. No rales wheezing or rhonchi Cardiac-regular rate and rhythm, normal S1 and S2, no murmurs Abdomen-normal bowel sounds, no hepatosplenomegaly. Mild left lower quadrant tenderness. No rebound or guarding Extremities-no cyanosis, clubbing, or edema Neuro-cranial nerves II through XII intact, motor and sensory function within normal limits, strength symmetrical , no focal deficits Psych-normal affect, normal mood Results & Data Results & Data Vital Signs (Past 12 Hours) Vital Signs Temp Pulse Resp BP Pulse Ox O2 Del Method 12/19/22 11:11 36.7 C 82 18 114/80 94 Room Air 12/19/22 07:15 36.6 C 94 H 18 104/73 93 Room Air 12/19/22 03:26 82 18 97/65 L 95 CPAP Laboratory Results 12/19/22 05:34 12/19/22 05:34 PG Care Time/CCT Total # of Minutes Spent Total Time Spent with Patient: Total time spent is greater than 50% in coordination of care (as documented) at patient's floor/unit and/or counseling patient: Coding Level of Care Code 98639 SUB INP/OBS CARE 350MIN Diagnoses Sigmoid diverticulitis K57.32
--- NOTE | 2022-12-19 11:26 | Surgery Progress Note ---
Date of Service December 19, 2022 Assessment & Plan (1) Sigmoid diverticulitis: Plan: Patient here with diverticulitis and possible intramural abscess WBC 9. Patient afebrile, vitals stable Still requiring IV pain medications for pain Would keep NPO with few ice chips if requested until further improvement in symptoms Continue IV abx OOB as tolerates Will follow. Pt seen/examined with Dr. Meyer Admission and Anticipated Discharge Date Admission Date: December 17, 2022 Supervising Physician Co-Signing Physician Notes This patient was seen and examined with the surgical PA. Ok with few ice chips if the patient requests. I agree with this plan. Subjective Patient reports feeling better, but still having some pain. He required some IV pain meds this AM. No nausea/vomiting. Passing small amounts of flatus. Denies any hunger. He took in some clears this morning and said it took about 45 minutes to drink it. Physical Exam Physical Exam: awake/alert, no distress Gastrointestinal (Abdomen): Percussion/Palpation: + abdomen tender (tenderness in the lower abdomen ) and abdomen soft Results & Data Vital Signs (Past 12 Hours) Vital Signs Temp Pulse Resp BP Pulse Ox O2 Del Method 12/19/22 11:11 36.7 C 82 18 114/80 94 Room Air 12/19/22 07:15 36.6 C 94 H 18 104/73 93 Room Air 12/19/22 03:26 82 18 97/65 L 95 CPAP PG Care Time/CCT Total # of Minutes Spent Total Time Spent with Patient: Total time spent is greater than 50% in coordination of care (as documented) at patient's floor/unit and/or counseling patient: Coding Level of Care Code 77267 SUB INP/OBS CARE 25MIN Diagnoses Sigmoid diverticulitis K57.32
[2022-12-19] MEDS: ACETAMINOPHEN 1,000 MG/100 ML VIAL IV PRN (20:06)
[2022-12-19] MEDS: ENOXAPARIN INJ 40 MG/0.4 ML SYR SQ SCH (21:58)
[2022-12-20 07:41] LABS: Basophils # (auto) 0.05 K/uL (0-0.2); Basophils % (auto) 0.7 %; Eosinophils # (auto) 0.13 K/uL (0-0.50); Eosinophils % (auto) 1.9 %; Hematocrit (blood only) 41.4 % (42.0-52.0); Hemoglobin 14.4 g/dl (14.0-18.0); Immature Granulocytes # (auto) 0.02 K/uL (0.01-0.20); Immature Granulocytes % (auto) 0.3 %; Lymphocytes # (auto) 2.25 K/uL (1.2-3.4); Lymphocytes % (auto) 32.7 %; Mean Corpuscular Hemoglobin 30.6 pg (25.0-34.0); Mean Corpuscular Hgb Conc 34.8 g/dL (32.0-36.0); Mean Corpuscular Volume 87.9 fL (80.0-100.0); Monocytes # (auto) 0.69 K/uL (0.11-0.59); Neutrophils # (auto) 3.75 K/uL (1.40-6.50); Neutrophils % (auto) 54.4 %; Platelet Count 229 K/uL (130-400); RDW Coefficient of Variation 12.2 % (11.5-14.5); Red Blood Count 4.71 M/uL (4.70-6.10); White Blood Count 6.89 K/ul (4.8-10.8)
[2022-12-20 08:17] LABS: BUN Creatinine Ratio 9.3 (10-20); Calcium 8.7 mg/dl (8.6-10.3); Est GFR (Non-African American) 79.4 ml/min; Potassium 3.9 mmol/L (3.5-5.1)
[2022-12-20] MEDS: PANTOprazole 40 MG TAB PO SCH (08:26)
[2022-12-20] MEDS: PIPERACILLIN/TAZOBACTAM 4.5 GM in DEXTROSE 5% 100 ML IV SCH ×3 (08:27→23:20)
--- NOTE | 2022-12-20 09:45 | Surgery Progress Note ---
I saw this patient in the am and agreed with this plan Date of Service December 20, 2022 Assessment & Plan (1) Sigmoid diverticulitis: Plan: Patient here with sigmoid diverticulitis WBC 6.8, patient with stable vitals and is afebrile Reports pain is improving. No n/v. + gas/BM Has not taking narcotics since yesterday Continue IV abx while in house Will start clear liquids OOB as tolerates Admission and Anticipated Discharge Date Admission Date: December 17, 2022 Subjective Patient feeling better than yesterday. Still some residual soreness in lower abdomen, but improving. No nausea/vomiting. passing flatus and BMs. Not taking in much pain meds Physical Exam Physical Exam: awake/alert, no distress Respiratory: normal respiratory effort Gastrointestinal (Abdomen): Percussion/Palpation: + abdomen tender (mild discomfort in lower abdomen) and abdomen soft Results & Data Vital Signs (Past 12 Hours) Vital Signs Temp Pulse Pulse Resp BP Pulse Ox O2 Del Method 12/20/22 07:22 36.4 C L 70 16 123/83 96 Room Air 12/20/22 07:03 72 12/20/22 03:56 36.3 C L 66 16 113/76 98 BiPAP 12/19/22 22:38 78 12/19/22 22:58 36.4 C L 84 16 126/80 94 Room Air PG Care Time/CCT Total # of Minutes Spent Total Time Spent with Patient: Total time spent is greater than 50% in coordination of care (as documented) at patient's floor/unit and/or counseling patient: Coding Level of Care Code 81705 SUB INP/OBS CARE 06/29MIN Diagnoses Sigmoid diverticulitis K57.32
[2022-12-20] MEDS: SODIUM CHLORIDE 0.9% 1000ML 1,000 ML IV SCH (14:51)
--- NOTE | 2022-12-20 19:25 | Hospitalist Progress Note ---
Date of Service December 20, 2022 Assessment & Plan (1) Sigmoid diverticulitis: Plan: with possible intramural abscess, ~3cm no microperforation no phlegmon clinically improving cont IV zosyn cont IV fluids allow clear liquids per surgery labs in am this is his 2nd episode of sigmoid diverticulitis requiring hospitalization in <1 year he has had multiple other episodes not radiographically confirmed to be diverticulitis but he states felt like such (he managed milder cases at home with diet restriction) if he cont to have recurrent sigmoid diverticulitis in the future ?elective resection defer that conversation to gen surg Plan DVT proph - lovenox daily home next 1-2 days on PO abx can d/c telemetry; move to med/surg Admission and Anticipated Discharge Date Admission Date: December 17, 2022 Subjective tele stable overnight pt's abdominal pain mostly resolved had stool - liquid - overnight no nausea no vomiting no dyspnea ambulating w/o difficulty patient hospitalized at [facility] in 04/2022 for sigmoid diverticulitis with microperforation had colonoscopy back in [place] about 6-8 weeks later biopsies negative no colon ca just diverticular disease Review of Systems Review of Systems: gen - no fevers cv - no chest pain pulm - no dyspnea Physical Exam Physical Exam: gen - obese, NAD, looks good mouth - MMM neck - no JVD heart - RRR, s1 s2, no murmur lungs - CTA b/l abd - soft NT ND BS+; no HSM ext - no edema, pulses 2+ b/l Results & Data Results & Data Vital Signs (Past 12 Hours) Vital Signs Temp Pulse Pulse Resp BP BP Pulse Ox 12/20/22 15:24 74 12/20/22 15:04 36.6 C 74 16 128/79 97 12/20/22 11:34 36.3 C L 78 16 126/82 98 O2 Del Method 12/20/22 15:24 12/20/22 15:04 Room Air 12/20/22 11:34 Room Air Laboratory Results Laboratory Results - last 24 hr 12/20/22 12/20/22 07:18 07:18 WBC 6.89 RBC 4.71 Hgb 14.4 Hct 41.4 L MCV 87.9 MCH 30.6 MCHC 34.8 RDW Std Deviation 39.0 RDW Coeff of Britt 12.2 Plt Count 229 MPV 10.0 Immature Gran % (Auto) 0.3 Neut % (Auto) 54.4 Lymph % (Auto) 32.7 Meriwether % (Auto) 10.0 Eos % (Auto) 1.9 Baso % (Auto) 0.7 Neut # (Auto) 3.75 Lymph # (Auto) 2.25 [place]ether # (Auto) 0.69 H Eos # (Auto) 0.13 Baso # (Auto) 0.05 Immature Gran # (Auto) 0.02 Sodium 137 Potassium 3.9 Chloride 105 Carbon Dioxide 24 Anion Gap 8 BUN 10 Creatinine 1.07 Est Cr Clr Drug Dosing 108.0 Est GFR ( Amer) 92.0 Est GFR (Non-Af Amer) 79.4 BUN/Creatinine Ratio 9.3 L Glucose 88 Calcium 8.7 PG Care Time/CCT Total # of Minutes Spent Total Time Spent with Patient: Total time spent is greater than 50% in coordination of care (as documented) at patient's floor/unit and/or counseling patient: Coding Level of Care Code 21039 SUB INP/OBS CARE 06/29MIN Diagnoses Sigmoid diverticulitis K57.32
[2022-12-21 07:41] LABS: BUN Creatinine Ratio 8.5 (10-20); Calcium 8.7 mg/dl (8.6-10.3); Creatinine Clr Calc Pharmacy 109.1 ml/min; Est GFR (African American) 93.1 ml/min; Est GFR (Non-African American) 80.3 ml/min; Potassium 3.8 mmol/L (3.5-5.1)
[2022-12-21] MEDS: PANTOprazole 40 MG TAB PO SCH (07:41)
[2022-12-21] MEDS: SODIUM CHLORIDE 0.9% 1000ML 1,000 ML IV SCH (07:41)
[2022-12-21] MEDS: PIPERACILLIN/TAZOBACTAM 4.5 GM in DEXTROSE 5% 100 ML IV SCH (07:45)
--- NOTE | 2022-12-21 09:19 | Surgery Progress Note ---
Date of Service December 21, 2022 Assessment & Plan (1) Sigmoid diverticulitis: Plan: Patient here with sigmoid diverticulitis no CBC this AM, but yesterday WBC 6, patient with stable vitals and is afebrile Reports pain continues to improve. He is tolerating clears without n/v. + gas/BM Not utilizing narcotics Continue IV abx while in house Will advance to full liquids Admission and Anticipated Discharge Date Admission Date: December 17, 2022 Supervising Physician Co-Signing Physician Notes I have seen and examined this patient. I agree with this plan. Subjective Patient is seen ambulating the halls. Reports feeling well. Tolerating clears without nausea/vomiting. Is passing flatus and had a loose BM. Abdominal pain improved. Physical Exam Physical Exam: awake/alert, no distress ambulating the halls Respiratory: normal respiratory effort Gastrointestinal (Abdomen): Percussion/Palpation: + abdomen tender (mild discomfort to deep palpation in the lower abdomen ) and abdomen soft Results & Data Vital Signs (Past 12 Hours) Vital Signs Temp Pulse Resp BP Pulse Ox O2 Del Method 12/21/22 07:33 36.4 C L 63 18 132/85 95 Room Air 12/20/22 23:08 36.7 C 73 18 116/72 97 CPAP PG Care Time/CCT Total # of Minutes Spent Total Time Spent with Patient: Total time spent is greater than 50% in coordination of care (as documented) at patient's floor/unit and/or counseling patient: Coding Level of Care Code 68682 SUB INP/OBS CARE 06/29MIN Diagnoses Sigmoid diverticulitis K57.32
--- NOTE | 2022-12-21 09:52 | Hospitalist Progress Note ---
Date of Service December 21, 2022 Assessment & Plan (1) Sigmoid diverticulitis: Plan: ct with comments of possible intramural abscess, ~3cm , no microperforation, no phlegmon IV zosyn, surgery is advancing diet, 2nd episode of sigmoid diverticulitis requiring hospitalization in <1 year Plan DVT proph - lovenox daily Admission and Anticipated Discharge Date Admission Date: December 17, 2022 Results & Data Results & Data Vital Signs (Past 12 Hours) Vital Signs Temp Pulse Resp BP Pulse Ox O2 Del Method 12/21/22 07:33 97.5 F L 63 18 132/85 95 Room Air 12/20/22 23:08 98.1 F 73 18 116/72 97 CPAP PG Care Time/CCT Total # of Minutes Spent Total Time Spent with Patient: Total time spent is greater than 50% in coordination of care (as documented) at patient's floor/unit and/or counseling patient: Coding Diagnoses Sigmoid diverticulitis K57.32
--- NOTE | 2022-12-21 12:29 | Discharge Summary ---
Date of Service December 21, 2022 Admission HPI Per Admitting Provider Khris is a 51 year old male with a PMH significant for multiple episodes of diverticulitis who presented to the [facility] ED on 12/17 with a chief complaint of lower abdominal pain. In the ED vitals were stable Labs were significant for a leukocytosis of 12. CT of the abd/pelvis w/IV con was read as "1. Acute sigmoid diverticulitis. 2. Hypodensity within the wall of the thickened sigmoid colon measuring 3 cm. This favors submucosal edema. A developing intramural abscess could also have a similar appearance. No evidence for microperforation or a pericolonic abscess at this time. 3. No dilated loops of bowel to suggest an obstruction. 4. Normal appendix.". Prior to admission the patient was given a dose of Zosyn and IV Dilaudid. At the time of the exam the patient was sitting in bed in no acute distress. He states that he deals with chronic, intermittent LLQ and lower abdominal pain since his last admission for diverticulitis. Approximately a week ago he started to develop his LLQ/lower abdominal pain. He describes the pain as sharp/stabbing, exacerbated with eating, and an 8/10 at it's most severe. He adjusted his diet to decrease his fiber intake and his symptoms were improving. Last night he did have 4 beers at their friend's house, he thinks this exacerbated the diverticulitis. Since this am he has been having constant, 8/10 pain. He denies recent fever, chills, chest pain, SOB, nausea, vomiting, d iarrhea, bloody BM/melena, dysuria hematuria, LE swelling and recent trauma. 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 His last colonoscopy was approximately 6 weeks after his last admission to [facility] in April of last year. He will follow up with his recycling sorter on discharge. Please refer to Dr. Guzman's attestation for any changes to the treatment plan Principal Diagnosis diverticulitis Discharge Data Allergies Allergy/AdvReac Type Severity Reaction Status Date / Time No Known Allergies Allergy Unverified 12/17/22 18:12 Consultations 12/17/22 18:22 Consult General Surgery Routine 12/17/22 19:15 ED Decision to Admit Stat Ordered Studies 12/17/22 CT abd pelvis IV con only Stat Hospital Course (1) Sigmoid diverticulitis: ct with comments of possible intramural abscess, ~3cm , no microperforation, no phlegmon IV zosyn, tolerating advancing diet, 2nd episode of sigmoid diverticulitis requiring hospitalization in <1 year Pt is well versed on home care, is comfortable going home on Augmentin, and light diet will follow up with surgery as outpt Plan DVT proph - lovenox daily Total Time Total Time Spent Total Time Spent (In Minutes): discharge took more than 30 minutes to prepare, coordinate discharge Discharge Plan Discharge Items Patient Disposition: Home - Self-Care Reason For Visit: ACUTE SIGMOID DIVERTICULITIS Discharge Diagnosis: acute diverticulitis Activity: Per Instructions section Activity Comment: slowly increase activity Non-emergency contact: Primary Care Provider and Surgeon Call non-emergency contact if: your symptoms worsen Follow-up/Referrals: Lyssa Meyer DO [Physician] - 01/04/23 10:00 am Diet: Low Fiber Addtl Attending Provider Instructions: Diverticulitis occurs when pouches form in the wall of the colon and become inflamed or infected. It can be very painful. Doctors aren't sure what causes diverticulitis. There is no proof that foods such as nuts, seeds, or berries cause it or make it worse. A low-fibre diet may cause the colon to work harder to push stool forward. Pouches may form because of this extra work. It may be hard to think about healthy eating while you're in pain. But as you recover, you might think about how you can use healthy eating for overall better health. Healthy eating may help you avoid future attacks. How can you care for yourself at home? * Drink plenty of fluids. If you have kidney, heart, or liver disease and have to limit fluids, talk with your doctor before you increase the amount of fluids you drink. * Stay with liquids or a bland diet (plain rice, bananas, dry toast or crackers, applesauce) until you are feeling better. Then you can return to regular foods and slowly increase the amount of fibre in your diet. * Use a heating pad set on low on your belly to relieve mild cramps and pain. * Get extra rest until you are feeling better. * Be safe with medicines. Read and follow all instructions on the label. * If the doctor gave you a prescription medicine for pain, take it as prescribed. * If you are not taking a prescription pain medicine, ask your doctor if you can take an pkik-lif-emmzmwz medicine. * If your doctor prescribed antibiotics, take them as directed. Do not stop taking them just because you feel better. You need to take the full course of antibiotics. * Do not use laxatives or enemas unless your doctor tells you to use them. When should you call for help? Call your doctor or nurse advice line nowor seek immediate medical care if: * You have a fever. * You are vomiting. * You have new or worse belly pain. * You cannot pass stools or gas. Pending Studies at Discharge: No Stand-Alone Forms: [facility] Visual Effects, Smoking Cessation Medications and DC Order Prescriptions: New amoxicillin-pot clavulanate 875-125 mg tablet 1 tab PO BID Qty: 24 0RF Continued omega 3-xhy-yrv-fish oil [Fish Oil] 1,000 mg (120 mg-180 mg) Capsule 1 cap PO DAILY fluticasone propionate [Flonase Allergy Relief] 50 mcg/actuation [place],Suspension 2 spray INTRANASAL DAILY Rx Instructions: administer into each nostril loratadine [Claritin] 10 mg Tablet 10 mg PO DAILY glucosamine-chondroitin [Osteo Bi-Flex] 250-200 mg Tablet 2 tab PO PC Discharge Orders: Discharge Order (Routine); Ordered 12/21/22 Ordered By: Pro Carreon Admission Data Admit Date/Time: 12/17/22 18:10 Attending Provider: Pro Carreon Admit Provider: Paul Guzman Primary Care Provider: Jailene Ribeiro Other Providers: Lyssa Meyer ; Paul Guzman Coding Level of Care Code 46418 INP/OBS DISCH >30 MIN Diagnoses Sigmoid diverticulitis K57.32
[2022-12-21 23:08] LABS: A calco-baum cmplx NotReported Not Detected (NotDetected); Bact fragilis Not Reported Not Detected (NotDetected); C auris Not Reported Not Detected (NotDetected); Calbicans Not Reported Not Detected (NotDetected); Candida glabrata Not Reported Not Detected (NotDetected); Candida krusei Not Reported Not Detected (NotDetected); Cneoformans/gatti Not Reported Not Detected (NotDetected); Cparapsilosis Not Reported Not Detected (NotDetected); Ctropicalis Not Reported Not Detected (NotDetected); E cloacae compx Not Reported Not Detected (NotDetected); Efaecalis Not Reported Not Detected (NotDetected); Efaecium Not Reported Not Detected (NotDetected); Enterobacterales Not Reported Not Detected (NotDetected); Escherichia coli Not Reported Not Detected (NotDetected); H influenzae Not Reported Not Detected (NotDetected); K aerogenes Not Reported Not Detected (NotDetected); Koxytoca Not Reported Not Detected (NotDetected); Kpneumoniae grp Not Reported Not Detected (NotDetected); Lmonocyt Not Reported Not Detected (NotDetected); N meningitidis Not Reported Not Detected (NotDetected); P aeruginosa Not Reported Not Detected (NotDetected); Proteus spp Not Reported Not Detected (NotDetected); Salmonella spp Not Reported Not Detected (NotDetected); Smarcescens Not Reported Not Detected (NotDetected); Staph lugdunensis Not Reported Not Detected (NotDetected); Staph spp. Not Reported Not Detected (NotDetected); Staphaureus Not Reported Not Detected (NotDetected); Staphepi Not Reported Not Detected (NotDetected); Stenmaltophilia Not Reported Not Detected (NotDetected); Strep agal(GrpB) Not Reported Not Detected (NotDetected); Strep pneum Not Reported Not Detected (NotDetected); Strep pyog (GrpA) Not Reported Not Detected (NotDetected); Strep spp Not Reported Not Detected (NotDetected)
== END 2022-12-21 14:20 | disposition home or self-care (01) | DRG 392 ==
LOC: ED 13:25 → SUATTDRO 18:10 → 4W 18:10 → 2N 12-19 22:21